=== PATIENT | female | born 1945 | race Caucasian/White ===

== ENCOUNTER 2021-08-16 16:12 | Inpatient (IN) | payer MEDICARE, SELFPAY ==
[2021-08-16 17:12] VITALS: BMI 43.5
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
[2021-08-16 18:27] VITALS: BP 125/63; PULSE 88; RESP 17; TEMP 36.7; O2SAT 98
[2021-08-16 19:03] LABS: TSH reflex Free T4 2.45 uIU/mL (0.32-4.0)
[2021-08-16 20:22] VITALS: BP 125/65; PULSE 85; RESP 17; TEMP 36.4; O2SAT 98
[2021-08-16] MEDS: Pentoxifylline ER 400 MG TABLET.ER PO (20:38)
[2021-08-16] MEDS: Gabapentin 300 MG CAPSULE PO (20:38)
[2021-08-16 20:42] VITALS: BP 125/65; PULSE 85; TEMP 36.4
[2021-08-17 11:05] VITALS: BP 118/59; PULSE 93; RESP 14; TEMP 36.3; O2SAT 100
--- NOTE | 2021-08-17 11:19 | MHC.CLN ---
NUTRITION VISITED WITH PATIENT TO DISCUSS FOOD ALLERGIES. DOES NOT APPEAR TO BE AN ACCURATE HISTORIAN AND COULD NOT FOCUS ON TOPIC. FOOD ALLERGIES ON RECORD: ALMOND, EGG, GLUTEN, LACTOSE, PORK, SOYBEAN, WHEAT. STATED THAT HER FOOD ALLERGIES ARE NOT CARVED IN STONE . DIET CHOICES LIKELY LIMITED BY HX HOMELESSNESS. DRINKS LACTAID, SOYMILK, WILL EAT WHOLE WHEAT BREAD SOMETIMES, WILL EAT EGG YOLK BUT NOT EGG WHITE, WILL EAT EGGS IN BAKED GOODS. REFERRED TO FOOD PROCESSNG AND THE WAY IT IS GROWN CAUSALS OF SOME FOOD ALLERGIES. PROVIDE PATIENT WITH DIET THAT IS FREE OF REPORTED ALLERGEN CAUSING FOODS.
[2021-08-17 13:51] VITALS: BP 122/61; PULSE 92
[2021-08-17] MEDS: Pentoxifylline ER 400 MG TABLET.ER PO ×2 (13:51→20:47)
[2021-08-17] MEDS: Metoprolol Succinate ER 25 MG TAB.ER.24H PO (13:51)
[2021-08-17] MEDS: Gabapentin 300 MG CAPSULE PO ×4 (13:53→20:49)
[2021-08-17] MEDS: Omeprazole 20 MG CAPSULE.DR PO (13:53)
--- NOTE | 2021-08-17 14:49 | P.PNPSI_ITS ---
Subjective Subjective Date of Service: 08/17/21 Reason For Visit: psychosis Subjective Notes: 3 Day Interim History: The nursing staff reported the patient has been hyperverbal at 23:00 in the morning. The social service agency director known her for previous admissions at [facility] and seems that she is chronically homeless hypomanic. Total interview, the patient was pleasant but tangential at times, fully aware that she signed a 3 day notice. Mental Status Exam Mental Status Exam Patient Appearance: Unkempt Patient Orientation: Person, Place and Situation Level of Consciousness: Awake and Appropriate Patient Behavior: Cooperative Mood Description: Elated Affect Description: Labile and Expansive Patient Cognition Impaired: Yes Ability to Follow Directions: Good Speech Pattern: Rapid Memory Description: Intact Hallucinations: None Delusions: Not Present Thought Process: Distracted (Flight of ideas) Thought Content: positive for Obsessional Thoughts and positive for Disorganized Judgement: Fair Diagnostics Vital Signs (24Hr): Vital Signs - 24 hr 08/16/21 18:27 08/16/21 20:22 08/16/21 20:42 Temperature 98.1 F 97.6 F 97.6 F Pulse Rate 88 85 85 Respiratory Rate 17 17 Blood Pressure 125/63 125/65 125/65 Pulse Oximetry 98 98 08/17/21 11:05 08/17/21 13:51 Temperature 97.3 F Pulse Rate 93 92 Respiratory Rate 14 Blood Pressure 118/59 L 122/61 Pulse Oximetry 100 Body Mass Index 43.5 Labs Labs: Laboratory Results - last 48 hr 08/16/21 18:22 TSH 2.45 Medications Medications Current Medications Acetaminophen (Acetaminophen 325 Mg Tablet) 650 mg PO Q6H PRN PRN Reason: Headache/Pain Mild Scale (1-3) Al Hydroxide/Mg Hydroxide (Magnesium Hydrox/Alum Hydrox 30 Ml Oral.Susp) 30 ml PO Q6H PRN PRN Reason: Heartburn/Nausea Atorvastatin Calcium (Atorvastatin Calcium 20 Mg Tablet) 20 mg PO BEDTIME [facility] Gabapentin (Gabapentin 300 Mg Capsule) 300 mg PO QID [facility] Last Admin: 08/17/21 13:54 Dose: 300 mg Documented by: Hydroxyzine HCl (Hydroxyzine Hcl 25 Mg Tablet) 25 mg PO Q6H PRN PRN Reason: Anxiety Magnesium Hydroxide (Milk Of Magnesia 30 Ml Oral.Susp) 30 ml PO DAILY PRN PRN Reason: Constipation Metoprolol Succinate (Metoprolol Succinate Er 25 Mg Tab.Er.24h) 25 mg PO DAILY [facility]; Protocol Last Admin: 08/17/21 13:51 Dose: 25 mg Documented by: Omeprazole (Omeprazole 20 Mg Capsule.) 20 mg PO DAILY@0630 [facility] Last Admin: 08/17/21 13:53 Dose: 20 mg Documented by: Pentoxifylline (Pentoxifylline Er 400 Mg Tablet.Er) 400 mg PO TID [facility] Last Admin: 08/17/21 13:51 Dose: 400 mg Documented by: Trazodone HCl (Trazodone Hcl 50 Mg Tablet) 50 mg PO BEDTIME PRN PRN Reason: Insomnia Allergies Allergies Allergy/AdvReac Type Severity Reaction Status Date / Time albumin colloid, human Allergy Unknown Verified 08/16/21 20:41 almond Allergy Unknown Verified 08/16/21 20:41 egg Allergy Unknown Verified 08/16/21 20:41 gluten Allergy Unknown Verified 08/16/21 20:41 influenza virus vaccine Allergy Unknown Verified 08/16/21 20:41 trivalent lactose Allergy Unknown Verified 08/16/21 20:41 Pork/Porcine Containing Allergy Unknown Verified 08/16/21 20:41 Products soybean Allergy Unknown Verified 08/16/21 20:41 wheat Allergy Unknown Verified 08/16/21 20:41 Assessment & Plan Assessment & Plan (1) Bipolar I disorder with nirav: Status: Acute Code(s): F31.10 - Bipolar disorder, current episode manic without psychotic features, unspecified Assessment and Plan: Charisma is a 75 y.o. Female who carries a dx of bipolar disorder I disorder. She presented to [facility] ED on 08/14/2021 and was seen by [facility] crisis due to delusional presentation. She is current presenting with sx of pressured speech and disorganized thought content in context of med non-adherence. Pt denies having mental health diagnosis and declines psychotropic medication adjustment despite reported past benefit on risperdal and depakote. She does not appear to be an accurate historian. Plan: Increase gabapentin to 300 mg QID to target mood lability and manic features Continue to offer mood stabilizing medication for bipolar disorder Monitor response to medications. Monitor for safety in the milieu. Discharge on stabilization. Patient seen. Chart reviewed. Discussed with team. Obtain collateral contact info?as needed Greater than 50% of the session was spent on counseling and/or coordination of care Reason for contiued inpatient stay Substantial Risk for: inability to function, rapid decompensation and med/psych decompensation
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
[2021-08-17 18:00] VITALS: BP 126/76; PULSE 68; RESP 18; TEMP 36.8; O2SAT 100
[2021-08-17] MEDS: Atorvastatin Calcium 20 MG TABLET PO (20:48)
[2021-08-18 06:00] VITALS: BP 138/63; PULSE 84; RESP 18; TEMP 36.1; O2SAT 97
[2021-08-18] MEDS: Omeprazole 20 MG CAPSULE.DR PO (07:04)
[2021-08-18 09:02] VITALS: BP 138/63; PULSE 84
[2021-08-18] MEDS: Metoprolol Succinate ER 25 MG TAB.ER.24H PO (09:02)
[2021-08-18] MEDS: Pentoxifylline ER 400 MG TABLET.ER PO ×3 (09:02→20:23)
[2021-08-18] MEDS: Gabapentin 300 MG CAPSULE PO ×4 (09:05→20:23)
[2021-08-18 18:00] VITALS: BP 129/63; PULSE 86; RESP 16; TEMP 36.2; O2SAT 98
--- NOTE | 2021-08-18 18:15 | HO.PSYCHPN ---
Subjective Subjective Date of Service: 08/18/21 Reason For Visit: psychosis Interim History: Patient seen and discussed with team. Patient evaluated this morning and upon interview Im j luis, I wanna get home. Says her not doing well at all and they won?t fly us out until i?m home and with him. Insists that he needs surgery for mesothelioma and they are awaiting for him to be approved for surgery but that this surgery will need to occur in a specialized hospital and so they will likely be flown out of state- however pt is not a reliable historian. She has signed a 3 day notice on 08/17/21. Says her sleep is good, I sleep like a log. She continues to insist that staff give her direct eye contact due to her hearing impairment. She is hyperverbal and tangential, difficult to re-direct. Does not want med changes. In the milieu, patient is safe but intrusive in behavior. Denies SI/SIB/HI upon inquiry. Denies irritability or assaultive ideation. Says she feels safe. Medication Compliance: Yes Side effects from medications: No Attending Groups: Yes Review of Systems Acute medical concerns: No Medical Review of Systems: unchanged Mental Status Exam Mental Status Exam Narrative: Patient Appearance:?Unkempt Patient Orientation:?Person, Place and Situation Level of Consciousness:?Awake and Appropriate Patient Behavior:?Cooperative Mood Description:?Elated Affect Description:?Labile and Expansive Patient Cognition Impaired:?Yes Ability to Follow Directions:?Good Speech Pattern:?Rapid Memory Description:?Intact Hallucinations:?None Delusions:?Not Present Thought Process:?Distracted (Flight of ideas) Thought Content:?positive for Obsessional Thoughts and positive for Disorganized Judgement:?Fair Diagnostics Vital Signs (24Hr): Vital Signs - 24 hr 08/18/21 06:00 08/18/21 09:02 Temperature 97.0 F Pulse Rate 84 84 Respiratory Rate 18 Blood Pressure 138/63 138/63 Pulse Oximetry 97 Body Mass Index 43.5 Labs Labs: Laboratory Results - last 48 hr 08/16/21 18:22 TSH 2.45 Medications Medications Current Medications Acetaminophen (Acetaminophen 325 Mg Tablet) 650 mg PO Q6H PRN PRN Reason: Headache/Pain Mild Scale (1-3) Al Hydroxide/Mg Hydroxide (Magnesium Hydrox/Alum Hydrox 30 Ml Oral.Susp) 30 ml PO Q6H PRN PRN Reason: Heartburn/Nausea Atorvastatin Calcium (Atorvastatin Calcium 20 Mg Tablet) 20 mg PO BEDTIME [facility] Last Admin: 08/17/21 20:48 Dose: 20 mg Documented by: Gabapentin (Gabapentin 300 Mg Capsule) 300 mg PO QID [facility] Last Admin: 08/18/21 17:26 Dose: 300 mg Documented by: Hydroxyzine HCl (Hydroxyzine Hcl 25 Mg Tablet) 25 mg PO Q6H PRN PRN Reason: Anxiety Magnesium Hydroxide (Milk Of Magnesia 30 Ml Oral.Susp) 30 ml PO DAILY PRN PRN Reason: Constipation Metoprolol Succinate (Metoprolol Succinate Er 25 Mg Tab.Er.24h) 25 mg PO DAILY [facility]; Protocol Last Admin: 08/18/21 09:02 Dose: 25 mg Documented by: Omeprazole (Omeprazole 20 Mg Capsule.Dr) 20 mg PO DAILY@0630 [facility] Last Admin: 08/18/21 07:04 Dose: 20 mg Documented by: Pentoxifylline (Pentoxifylline Er 400 Mg Tablet.Er) 400 mg PO TID [facility] Last Admin: 08/18/21 15:10 Dose: 400 mg Documented by: Trazodone HCl (Trazodone Hcl 50 Mg Tablet) 50 mg PO BEDTIME PRN PRN Reason: Insomnia Allergies Allergies Allergy/AdvReac Type Severity Reaction Status Date / Time albumin colloid, human Allergy Unknown Verified 08/16/21 20:41 almond Allergy Unknown Verified 08/16/21 20:41 egg Allergy Unknown Verified 08/16/21 20:41 gluten Allergy Unknown Verified 08/16/21 20:41 influenza virus vaccine Allergy Unknown Verified 08/16/21 20:41 trivalent lactose Allergy Unknown Verified 08/16/21 20:41 Pork/Porcine Containing Allergy Unknown Verified 08/16/21 20:41 Products soybean Allergy Unknown Verified 08/16/21 20:41 wheat Allergy Unknown Verified 08/16/21 20:41 Assessment & Plan Assessment & Plan (1) Bipolar I disorder with nirav: Status: Acute Code(s): F31.10 - Bipolar disorder, current episode manic without psychotic features, unspecified Assessment and Plan: Charisma is a 75 y.o. Female who carries a dx of bipolar disorder I disorder. She presented to [facility] ED on 08/14/2021 and was seen by [facility] due to delusional presentation. She is current presenting with sx of pressured speech and disorganized thought content in context of med non-adherence. Pt denies having mental health diagnosis and declines psychotropic medication adjustment despite reported past benefit on risperdal and depakote. She does not appear to be an accurate historian. Weekend coverage: pt does not want med changes, reports she is feeling stable and has limited insight into her psych sx. Plan: Continue gabapentin to 300 mg QID to target mood lability and manic features Continue to offer mood stabilizing medication for bipolar disorder Monitor response to medications. Monitor for safety in the milieu. Discharge on stabilization. Patient seen. Chart reviewed. Discussed with team. Obtain collateral contact info?as needed Greater than 50% of the session was spent on counseling and/or coordination of care Reason for contiued inpatient stay Substantial Risk for: med/psych decompensation
[2021-08-18] MEDS: Atorvastatin Calcium 20 MG TABLET PO (20:23)
[2021-08-18] MEDS: Acetaminophen 325 MG TABLET 650 MG PO (23:49)
[2021-08-19 06:00] VITALS: BP 113/60; PULSE 77; RESP 18; TEMP 37.1; O2SAT 99
[2021-08-19] MEDS: Omeprazole 20 MG CAPSULE.DR PO (06:14)
[2021-08-19] MEDS: Pentoxifylline ER 400 MG TABLET.ER PO ×3 (09:39→20:58)
[2021-08-19] MEDS: Gabapentin 300 MG CAPSULE PO ×4 (09:39→20:58)
[2021-08-19 09:40] VITALS: BP 113/60; PULSE 77
[2021-08-19] MEDS: Metoprolol Succinate ER 25 MG TAB.ER.24H PO (09:40)
[2021-08-19 18:00] VITALS: BP 136/70; PULSE 77; RESP 20; TEMP 36; O2SAT 98
[2021-08-19] MEDS: Atorvastatin Calcium 20 MG TABLET PO (20:58)
[2021-08-20] MEDS: Omeprazole 20 MG CAPSULE.DR PO (05:07)
--- NOTE | 2021-08-20 07:16 | HO.PSYCHPN ---
Subjective Subjective Date of Service: 08/19/21 Reason For Visit: psychosis Interim History: Patient seen and discussed with team. Patient evaluated this morning and upon interview pt reports she feels pretty good. Continues to perseverate on needing surgery out of state and says We?re out of here as soon as we get my ?s surgery. She continues to present with grandiose delusions and is an inaccurate historian. 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 Does not want med changes, says they are helping and appreciates the increase in gabapentin to target anxiety and mood stability, I think we got them right. In the milieu, patient is safe but intrusive in behavior. Denies SI/SIB/HI upon inquiry. Denies irritability or assaultive ideation. Says she feels safe. Medication Compliance: Yes Side effects from medications: No Attending Groups: Yes Review of Systems Acute medical concerns: No Medical Review of Systems: unchanged Mental Status Exam Mental Status Exam Narrative: Narrative:?Patient Appearance:?Unkempt Patient Orientation:?Person, Place and Situation Level of Consciousness:?Awake and Appropriate Patient Behavior:?Cooperative Mood Description:?Elated Affect Description:?Labile and Expansive Patient Cognition Impaired:?Yes Ability to Follow Directions:?Good Speech Pattern:?Rapid Memory Description:?Intact Hallucinations:?None Delusions:?Not Present Thought Process:?Distracted (Flight of ideas) Thought Content:?positive for Obsessional Thoughts and positive for Disorganized Judgement:?Fair Diagnostics Vital Signs (24Hr): Vital Signs - 24 hr 08/19/21 09:40 08/19/21 18:00 Temperature 96.8 F Pulse Rate 77 77 Respiratory Rate 20 Blood Pressure 113/60 136/70 Pulse Oximetry 98 Body Mass Index 43.5 Medications Medications Current Medications Acetaminophen (Acetaminophen 325 Mg Tablet) 650 mg PO Q6H PRN PRN Reason: Headache/Pain Mild Scale (1-3) Last Admin: 08/18/21 23:49 Dose: 650 mg Documented by: Al Hydroxide/Mg Hydroxide (Magnesium Hydrox/Alum Hydrox 30 Ml Oral.Susp) 30 ml PO Q6H PRN PRN Reason: Heartburn/Nausea Atorvastatin Calcium (Atorvastatin Calcium 20 Mg Tablet) 20 mg PO BEDTIME [facility] Last Admin: 08/19/21 20:58 Dose: 20 mg Documented by: Diphenhydramine HCl (Diphenhydramine Hcl 25 Mg Tablet) 25 mg PO BEDTIME PRN PRN Reason: Sleep Gabapentin (Gabapentin 300 Mg Capsule) 300 mg PO QID [facility] Last Admin: 08/19/21 20:58 Dose: 300 mg Documented by: Hydroxyzine HCl (Hydroxyzine Hcl 25 Mg Tablet) 25 mg PO Q6H PRN PRN Reason: Anxiety Magnesium Hydroxide (Milk Of Magnesia 30 Ml Oral.Susp) 30 ml PO DAILY PRN PRN Reason: Constipation Metoprolol Succinate (Metoprolol Succinate Er 25 Mg Tab.Er.24h) 25 mg PO DAILY [facility]; Protocol Last Admin: 08/19/21 09:40 Dose: 25 mg Documented by: Omeprazole (Omeprazole 20 Mg Capsule.Dr) 20 mg PO DAILY@0630 [facility] Last Admin: 08/20/21 05:07 Dose: 20 mg Documented by: Pentoxifylline (Pentoxifylline Er 400 Mg Tablet.Er) 400 mg PO TID [facility] Last Admin: 08/19/21 20:58 Dose: 400 mg Documented by: Trazodone HCl (Trazodone Hcl 50 Mg Tablet) 50 mg PO BEDTIME PRN PRN Reason: Insomnia Allergies Allergies Allergy/AdvReac Type Severity Reaction Status Date / Time albumin colloid, human Allergy Unknown Verified 08/16/21 20:41 almond Allergy Unknown Verified 08/16/21 20:41 egg Allergy Unknown Verified 08/16/21 20:41 gluten Allergy Unknown Verified 08/16/21 20:41 influenza virus vaccine Allergy Unknown Verified 08/16/21 20:41 trivalent lactose Allergy Unknown Verified 08/16/21 20:41 Pork/Porcine Containing Allergy Unknown Verified 08/16/21 20:41 Products soybean Allergy Unknown Verified 08/16/21 20:41 wheat Allergy Unknown Verified 08/16/21 20:41 Assessment & Plan Assessment & Plan (1) Bipolar I disorder with nirav: Status: Acute Code(s): F31.10 - Bipolar disorder, current episode manic without psychotic features, unspecified Assessment and Plan: Charisma is a 75 y.o. Female who carries a dx of bipolar disorder I disorder. She presented to [facility] ED on 08/14/2021 and was seen by [facility] due to delusional presentation. She is current presenting with sx of pressured speech and disorganized thought content in context of med non-adherence. Pt denies having mental health diagnosis and declines psychotropic medication adjustment despite reported past benefit on risperdal and depakote. She does not appear to be an accurate historian. Weekend coverage: pt does not want med changes, reports she is feeling stable and has limited insight into her psych sx. 3 day notice signed on 08/17/21. Plan: Continue gabapentin to 300 mg QID to target mood lability and manic features Continue to offer mood stabilizing medication for bipolar disorder Monitor response to medications. Monitor for safety in the milieu. Discharge on stabilization. Patient seen. Chart reviewed. Discussed with team. Obtain collateral contact info?as needed Greater than 50% of the session was spent on counseling and/or coordination of care Reason for contiued inpatient stay Substantial Risk for: med/psych decompensation
[2021-08-20] MEDS: Gabapentin 300 MG CAPSULE PO ×4 (08:28→20:49)
[2021-08-20] MEDS: Metoprolol Succinate ER 25 MG TAB.ER.24H PO (08:28)
[2021-08-20] MEDS: Pentoxifylline ER 400 MG TABLET.ER PO ×3 (08:28→20:49)
[2021-08-20 09:29] VITALS: BP 132/69; PULSE 90; RESP 14; TEMP 36.7; O2SAT 95
--- NOTE | 2021-08-20 13:15 | P.PNPSI_ITS ---
Subjective Subjective Date of Service: 08/20/21 Reason For Visit: psychosis Interim History: The nursing staff has reported that the patient has being with fast speech but med compliant, she is described as eccentric and hypomanic but safe. The nursing home social worker who knows her from previous admissions reported that this is her baseline and she usually school chronically homeless living in a motel in [facility]. According to the report of the intake apparently she was evicted from there. She usually refuses services and today, she again refused referral to other providers in the community. On interview, the patient stated that she wants to leave, she feels safe and she denies having any psychiatric condition. She is able to take care of herself safely. Medication Compliance: Yes Side effects from medications: No Attending Groups: Yes Review of Systems Acute medical concerns: No Medical Review of Systems: unchanged Mental Status Exam Mental Status Exam Patient Appearance: Well Grooomed Patient Orientation: Person, Place and Situation Level of Consciousness: Awake Patient Behavior: Appropriate and Hyperactive Mood Description: Appropriate and Anxious Affect Description: Appropriate Patient Cognition Impaired: No Ability to Follow Directions: Good Speech Pattern: Rapid Memory Description: Intact Hallucinations: None Delusions: Not Present Thought Process: Distracted Thought Content: positive for Circumstantial Judgement: Fair Diagnostics Vital Signs (24Hr): Vital Signs - 24 hr 08/19/21 18:00 08/20/21 09:29 Temperature 96.8 F 98.0 F Pulse Rate 77 90 Respiratory Rate 20 14 Blood Pressure 136/70 132/69 Pulse Oximetry 98 95 Body Mass Index 43.5 Medications Medications Current Medications Acetaminophen (Acetaminophen 325 Mg Tablet) 650 mg PO Q6H PRN PRN Reason: Headache/Pain Mild Scale (1-3) Last Admin: 08/18/21 23:49 Dose: 650 mg Documented by: Al Hydroxide/Mg Hydroxide (Magnesium Hydrox/Alum Hydrox 30 Ml Oral.Susp) 30 ml PO Q6H PRN PRN Reason: Heartburn/Nausea Atorvastatin Calcium (Atorvastatin Calcium 20 Mg Tablet) 20 mg PO BEDTIME [facility] Last Admin: 08/19/21 20:58 Dose: 20 mg Documented by: Diphenhydramine HCl (Diphenhydramine Hcl 25 Mg Tablet) 25 mg PO BEDTIME PRN PRN Reason: Sleep Gabapentin (Gabapentin 300 Mg Capsule) 300 mg PO QID [facility] Last Admin: 08/20/21 12:39 Dose: 300 mg Documented by: Hydroxyzine HCl (Hydroxyzine Hcl 25 Mg Tablet) 25 mg PO Q6H PRN PRN Reason: Anxiety Magnesium Hydroxide (Milk Of Magnesia 30 Ml Oral.Susp) 30 ml PO DAILY PRN PRN Reason: Constipation Metoprolol Succinate (Metoprolol Succinate Er 25 Mg Tab.Er.24h) 25 mg PO DAILY [facility]; Protocol Last Admin: 08/20/21 08:28 Dose: 25 mg Documented by: Omeprazole (Omeprazole 20 Mg Capsule.Dr) 20 mg PO DAILY@0630 [facility] Last Admin: 08/20/21 05:07 Dose: 20 mg Documented by: Pentoxifylline (Pentoxifylline Er 400 Mg Tablet.Er) 400 mg PO TID [facility] Last Admin: 08/20/21 08:28 Dose: 400 mg Documented by: Trazodone HCl (Trazodone Hcl 50 Mg Tablet) 50 mg PO BEDTIME PRN PRN Reason: Insomnia Allergies Allergies Allergy/AdvReac Type Severity Reaction Status Date / Time albumin colloid, human Allergy Unknown Verified 08/16/21 20:41 almond Allergy Unknown Verified 08/16/21 20:41 egg Allergy Unknown Verified 08/16/21 20:41 gluten Allergy Unknown Verified 08/16/21 20:41 influenza virus vaccine Allergy Unknown Verified 08/16/21 20:41 trivalent lactose Allergy Unknown Verified 08/16/21 20:41 Pork/Porcine Containing Allergy Unknown Verified 08/16/21 20:41 Products soybean Allergy Unknown Verified 08/16/21 20:41 wheat Allergy Unknown Verified 08/16/21 20:41 Assessment & Plan Assessment & Plan (1) Bipolar I disorder with nirav: Status: Acute Code(s): F31.10 - Bipolar disorder, current episode manic without psychotic features, unspecified Assessment and Plan: Charisma is a 75 y.o. Female who carries a dx of bipolar disorder I disorder. She presented to [facility] ED on 08/14/2021 and was seen by [facility] crisis due to delusional presentation. She is current presenting with sx of pressured speech and disorganized thought content in context of med non-adherence. Pt denies having mental health diagnosis and declines psychotropic medication adjustment despite reported past benefit on risperdal and depakote. She does not appear to be an accurate historian. Weekend coverage: pt does not want med changes, reports she is feeling stable and has limited insight into her psych sx. 3 day notice signed on 08/17/21. Today, she is cooperative with the treatment, still hypomanic at baseline but safe in the community. Plan: Continue same treatment Greater than 50% of the session was spent on counseling and/or coordination of care Reason for contiued inpatient stay Substantial Risk for: rapid decompensation and med/psych decompensation
[2021-08-20 18:00] VITALS: BP 138/65; PULSE 73; RESP 18; TEMP 37.2; O2SAT 98
[2021-08-20] MEDS: Atorvastatin Calcium 20 MG TABLET PO (20:49)
[2021-08-21] MEDS: Omeprazole 20 MG CAPSULE.DR PO (05:57)
[2021-08-21 08:38] VITALS: BP 117/56; PULSE 86
[2021-08-21] MEDS: Gabapentin 300 MG CAPSULE PO ×2 (08:38→12:36)
[2021-08-21] MEDS: Metoprolol Succinate ER 25 MG TAB.ER.24H PO (08:38)
[2021-08-21] MEDS: Pentoxifylline ER 400 MG TABLET.ER PO ×2 (08:38→14:17)
[2021-08-21 09:07] VITALS: BP 119/56; PULSE 87; TEMP 35.7; O2SAT 97
--- NOTE | 2021-08-21 11:24 | PM.PSYDC ---
DS: Providers Provider Date of Service: 08/21/21 Date of admission: 08/16/21 16:12 Date of discharge: 08/21/21 Primary care physician: Iris Hodge MD Consults: 08/16/21 17:06 Consult to Hospitalist Routine Consulting Provider: Hospitalist Reason For Exam: new admit from [facility] Attending physician on discharge: Jesus Rossi DS: Diagnosis Discharge Diagnosis (1) Bipolar I disorder with nirav: Status: Acute Mental Status Exam Mental Status Exam Patient Appearance: Well Grooomed Patient Orientation: Person, Place and Situation Level of Consciousness: Awake and Appropriate Patient Behavior: Cooperative Mood Description: Happy and Appropriate Affect Description: Labile (At times) and Expansive Patient Cognition Impaired: No Ability to Follow Directions: Good Speech Pattern: Clear Memory Description: Intact Hallucinations: None Delusions: Not Present Thought Process: Linear Thought Content: positive for Flight of Ideas Judgement: Fair Data Data Completed and Pending Completed studies during hospitalization [Text1]: 08/16/21 18:22 TSH 2.45 DS: Summary Hospital Course Time spent discussing smoking cessation with patient: 3 to 10 minutes Status at Discharge Cognitive/behavioral status at discharge: At baseline Functional status at discharge: independent ambulation Overall status at discharge: patient is back to baseline Time Spent with Patient Time attestation: Total time spent providing and/or coordinating discharge services: Time spent: Less than 30 minutes Discharge Plan Discharge Patient Disposition: Home, Self-Care Discharge Diagnosis: Bipolar disorder type 1 Referrals: Angeline DAMON [Other] - 1 Week (Angeline DAMON will resume for RN services on Friday08/22/21. ) Iris Hodge MD [Primary Care Provider] - 1 Week Discharge Medications: New atorvastatin 20 mg Tablet 20 mg PO BEDTIME 30 Days Qty: 30 RF: 0 pentoxifylline 400 mg Tablet Extended Release 400 mg PO TID 30 Days Qty: 90 RF: 0 diphenhydramine HCl [Allergy Relief(diphenhydramin)] 25 mg Tablet 25 mg PO BEDTIME PRN (Reason: Sleep) 30 Days Qty: 30 RF: 0 gabapentin 300 mg Capsule 300 mg PO QID 30 Days Qty: 120 RF: 0 omeprazole 20 mg Capsule,Delayed Release(Dr/Ec) 20 mg PO DAILY@0630 30 Days Qty: 30 RF: 0 metoprolol succinate 25 mg Tablet Extended Release 24 Hr 25 mg PO DAILY 30 Days Qty: 30 RF: 0 Discharge Orders: Discharge Order (Routine); Ordered 08/21/21 Ordered By: Jesus Rossi Diet: advance to usual diet Activity on Discharge: As tolerated Stand Alone Forms: Patient Portal Discharge page Care Plan Goals: Care plan goals achieved in the unit Health Concerns: Continue medical treatment by his primary care physician Plan of Treatment: The patient refused psychotherapy or psychiatric referrals Assessment: Elderly female with a long history of mood disorders, fairly stable and safe in the community admitted for disorganized behavior. She was restarted on gabapentin 300 mg 4 times a day with for improvement at this moment, there is no safety concerns for discharge
== END 2021-08-21 15:00 | disposition home or self-care (01) | DRG 885 ==
PROVIDERS: Registered Nurse; Admitting Provider Psychiatry & Neurology Psychiatry; PCP Internal Medicine; Visit Provider Psychiatry & Neurology Psychiatry
DX: F31.10 Bipolar disorder, current episode manic without psychotic features, unspecified (principal); I25.10 Atherosclerotic heart disease of native coronary artery without angina pectoris; K21.9 Gastro-esophageal reflux disease without esophagitis; Z79.899 Other long term (current) drug therapy
CPT/HCPCS: 36415; 84443

== ENCOUNTER 2024-01-28 17:26 | Inpatient (IN) | payer MEDICARE, SELFPAY ==
[2024-01-28 17:52] VITALS: PULSE 71; O2SAT 99
--- NOTE | 2024-01-28 17:54 | ED_ITS ---
HPI - General Adult General Chief complaint: Psychiatric Symptoms Stated complaint: MISSING MEDS, MANIC, INCOHERENT Time Seen by Provider: 01/28/24 17:54 History of Present Illness HPI narrative: The patient is a 78-year-old woman with a history of bipolar 1 disorder with nirav who was brought to the hospital by ambulance from a local hotel or motel. Apparently she has been living there with her . Her is sick with mesothelioma and seemed quite ill today. An ambulance was called and he was taken to [facility]. For reasons that are not entirely clear the patient was brought to this hospital. The patient tells me that she was concerned that she was having trouble with her medications. She claims that her throughout her medications. The patient further says that she was recently hospitalized at [facility]. She says that she had a stroke and then had a heart attack. She does not have any chest pain or shortness of breath at the moment. The patient is quite hyperverbal and disorganized and does not really able to give useful history. Related Data Previous Rx's Medication Instructions Recorded atorvastatin 20 mg tablet 20 mg PO BEDTIME 30 days #30 tabs 08/21/21 diphenhydramine HCl 25 mg tablet 25 mg PO BEDTIME PRN Sleep 30 days 08/21/21 (Allergy Relief (diphenhydramine)) #30 tabs gabapentin 300 mg capsule 300 mg PO QID 30 days #120 caps 08/21/21 metoprolol succinate 25 mg 25 mg PO DAILY 30 days #30 tabs 08/21/21 tablet,extended release 24 hr omeprazole 20 mg capsule,delayed 20 mg PO DAILY@0630 30 days #30 08/21/21 release caps pentoxifylline 400 mg 400 mg PO TID 30 days #90 tabs 08/21/21 tablet,extended release Allergies Allergy/AdvReac Type Severity Reaction Status Date / Time albumin colloid, human Allergy Unknown Verified 01/28/24 18:12 almond Allergy Unknown Verified 01/28/24 18:12 egg Allergy Unknown Verified 01/28/24 18:12 gluten Allergy Unknown Verified 01/28/24 18:12 influenza virus vaccine Allergy Unknown Verified 01/28/24 18:12 trivalent lactose Allergy Unknown Verified 01/28/24 18:12 Pork/Porcine Containing Allergy Unknown Verified 01/28/24 18:12 Products soybean Allergy Unknown Verified 01/28/24 18:12 wheat Allergy Unknown Verified 01/28/24 18:12 Review of Systems 2 Review of Systems: Yes all other systems are reviewed and are negative [facility] Social History Social History Household Members: Significant Other Housing: Homeless Do you presently have visiting nurse or other home services: No Unable to assess alcohol history related to: Unknown Patient Tobacco Use Status: Never used Tobacco Smoked in Last 30 Days: No Use of substances other than those prescribed or required for medical reasons: Unable to respond Advance Directives: No Advance Directives Information Provided: No service: No Sexual orientation: Straight/Heterosexual Physical Exam ED Vital Signs: Vital Signs - 24 hr 01/28/24 18:07 01/28/24 22:52 01/29/24 00:00 Temperature 97.7 F 97.3 F 99.3 F Pulse Rate 75 77 75 Respiratory Rate 16 19 18 Blood Pressure 121/65 108/58 L 134/60 Pulse Oximetry 100 98 98 Oxygen Delivery Method Room Air Room Air Room Air BMI result Body Mass Index 38.7 Const Other: The patient is a poorly kempt 78-year-old woman who was awake and alert and hyperverbal. She does not seem in acute distress. She is difficult to communicate with because her speech is so pressured and tangential. HENMT Other: No obvious facial asymmetry. Mucous membranes do not appear obviously dry. Eyes Other: Pupils are small, round, equal, extraocular movements are intact Neck Other: No JVD, moving her neck easily Resp Effort & Inspection: normal respiratory effort Auscultation: clear to auscultation bilaterally Cardio Rate: regular rate Rhythm: regular rhythm Heart sounds: S1 normal heart sound present and S2 normal heart sound present GI Other: Abdomen is soft and nontender Skin Other: Skin is pale and dry Neuro Other: The patient is awake and alert. She reports being very hard of hearing but often seemed to hear a lot that was quite quiet. Cranial nerves are otherwise intact. She moves her extremities symmetrically. She was able to stand and had adequate strength in her legs for standing but she reported that she was very unsteady on her feet and said that she needed a wheelchair to go to the bathroom. Overall I felt she seemed generally deconditioned and without focal deficit. Extrem Other: No pitting edema. Psych Other: The patient is a poorly kempt 78-year-old woman with pressured and tangential speech. Medical Decision Making Medical Decision Making [facility] Narrative: The patient is a 78-year-old woman with a history of chronic mental illness. She has been diagnosed with bipolar 1 disorder in the past. She has been off medications recently. She was at [facility] in early December for 4 days. I believe she was held in observation in the emergency room. I suspect that her presentation at that time was probably fairly similar to her presentation today. Her presentation today includes pressured speech, tangential thoughts, and no insight. She has an unreliable historian. It is unclear whether she has been taking any medications. She was prescribed olanzapine when she left [facility] but it is not clear if this is a medication she has been using. She has been prescribed Depakote in the past but her Depakote level is not detectable. The patient's medical workup is unremarkable. I think she is medically clear and stable for a psychiatric evaluation. It is possible that her current behavior is a reflection of her chronic condition. I believe she will need evaluation by the care team. It also seems as though her living situation is very tenuous and so I think case management will need to be involved in unless she is admitted psychiatrically. The patient will be paced in physician observation. She is medically clear. Lab Data 01/28/24 19:21 01/28/24 19:21 Labs: Lab Results 01/28/24 01/28/24 01/28/24 Range/Units 19:21 20:57 23:22 WBC 6.3 (4.8-10.8) X10*3/uL RBC 4.36 (4.20-5.50) X10*6/uL Hgb 13.3 (12.0-16.0) g/dl Hct 39.6 (37.0-47.0) % MCV 90.8 (80.0-98.0) fL MCH 30.5 (27.0-33.0) pg MCHC 33.6 (31.0-35.0) g/dl RDW 13.2 (11.0-16.0) % Plt Count 187 (160-400) X10*3/uL MPV 11.1 (9.4-12.3) fL Immature Gran % (Auto) 0.2 (0.0-0.4) % Neut % (Auto) 61.3 (45-73) % Lymph % (Auto) 28.3 (20-40) % Daniels % (Auto) 8.7 (2-11) % Eos % (Auto) 1.0 (0-4) % Baso % (Auto) 0.5 (0-2) % Lymph # (Auto) 1.8 (1.2-4.9) X10*3/uL Daniels # (Auto) 0.6 (0.1-1.2) X10*3/uL Eos # (Auto) 0.1 (0.0-0.4) X10*3/uL Baso # (Auto) 0.0 (0.0-0.2) X10*3/uL Abs Immat Gran (auto) 0.01 (0.00-0.03) X10*3/uL Absolute Neuts (auto) 3.9 (2.0-8.3) x10*3/uL Absolute Nucleated RBC 0.000 (0.0-0.012) X10*3/uL Nucleated RBC % (auto) 0.0 (0.0-0.2) /100WBC Sodium 139 (135-145) mmol/L Potassium 3.9 (3.3-5.1) mmol/L Chloride 105 (96-108) mmol/L Carbon Dioxide 25 (22-29) mmol/L Anion Gap 13 (12-20) BUN 21 H (9-16) mg/dL Creatinine 1.00 (0.5-1.4) mg/dL Estim Creat Clear Calc 58.8 Estimated GFR 54 Random Glucose 228 H (60-115) mg/dL Calcium 9.7 (8.4-10.2) mg/dL Total Bilirubin 0.6 (0.0-1.0) mg/dL Direct Bilirubin 0.2 (0.0-0.5) mg/dL AST 20 (5-31) U/L ALT 15 (0-31) U/L Alkaline Phosphatase 91 (39-117) U/L Total Protein 7.1 (6.5-8.0) g/dL Albumin 3.8 (3.5-5.0) g/dL TSH 3.83 (0.32-4.0) uIU/mL Salicylates < 5.0 L (15-30) mg/dL Urine Opiates Screen Not Detected (Not Detect) Urine Fentanyl Screen Not Detected (Not Detect) Acetaminophen < 3 (<30) mcg/mL Ur Barbiturates Screen Not Detected (Not Detect) Valproic Acid < 12.5 L (50.0-100.0) mcg/mL Ur Phencyclidine Scrn Not Detected (Not Detect) Ur Amphetamines Screen Not Detected (Not Detect) U Benzodiazepines Scrn Not Detected (Not Detect) Urine Cocaine Screen Not Detected (Not Detect) U Marijuana (THC) Screen Not Detected (Not Detect) Ethyl Alcohol < 10 mg/dL Discharge Plan Discharge Clinical Impression: Bipolar I disorder with nirav Patient Disposition: Still a Patient Prescriptions: No Action atorvastatin 20 mg Tablet 20 mg PO BEDTIME 30 Days Qty: 30 0RF pentoxifylline 400 mg Tablet Extended Release 400 mg PO TID 30 Days Qty: 90 0RF diphenhydramine HCl [Allergy Relief(diphenhydramin)] 25 mg Tablet 25 mg PO BEDTIME PRN (Reason: Sleep) 30 Days Qty: 30 0RF gabapentin 300 mg Capsule 300 mg PO QID 30 Days Qty: 120 0RF omeprazole 20 mg Capsule,Delayed Release(Dr/Ec) 20 mg PO DAILY@0630 30 Days Qty: 30 0RF metoprolol succinate 25 mg Tablet Extended Release 24 Hr 25 mg PO DAILY 30 Days Qty: 30 0RF Protocol: Hold for SBP/HR < HOLD for SBP < : 90 HOLD for HR < : 60 Interventions: [place]-Suicide Risk Severity Scale Last Done: 01/28/24 19:46
[2024-01-28 18:07] VITALS: BP 121/65; PULSE 75; RESP 16; TEMP 36.5; O2SAT 100; BMI 38.7
[2024-01-28 19:31] LABS: MANUAL DIFF FLAG NO
[2024-01-28 19:32] LABS: Basophils Percent Auto 0.5 % (0-2); Eosinophils Absolute Auto 0.1 X10*3/uL (0.0-0.4); Hematocrit 39.6 % (37.0-47.0); Hemoglobin 13.3 g/dl (12.0-16.0); Imm Gran Abs Auto 0.01 X10*3/uL (0.00-0.03); Imm Gran Pct Auto 0.2 % (0.0-0.4); Lymphocytes Absolute Auto 1.8 X10*3/uL (1.2-4.9); Lymphocytes Percent Auto 28.3 % (20-40); Mean Corpuscular HGB Conc 33.6 g/dl (31.0-35.0); Mean Corpuscular Hemoglobin 30.5 pg (27.0-33.0); Mean Corpuscular Volume 90.8 fL (80.0-98.0); Mean Platelet Volume 11.1 fL (9.4-12.3); Monocytes Absolute Auto 0.6 X10*3/uL (0.1-1.2); Monocytes Percent Auto 8.7 % (2-11); Neutrophils Absolute Auto 3.9 x10*3/uL (2.0-8.3); Neutrophils Percent Auto 61.3 % (45-73); Platelet Count 187 X10*3/uL (160-400); Red Blood Count 4.36 X10*6/uL (4.20-5.50); Red Cell Distribution Width 13.2 % (11.0-16.0); White Blood Count 6.3 X10*3/uL (4.8-10.8)
[2024-01-28 19:58] LABS: Ethanol < 10 mg/dL
[2024-01-28 19:59] LABS: Acetaminophen LAB < 3 mcg/mL (<30); Alanine Aminotransferase 15 U/L (0-31); Albumin Level 3.8 g/dL (3.5-5.0); Alkaline Phosphatase 91 U/L (39-117); Anion Gap 13 (12-20); Aspartate Amino Transferase 20 U/L (5-31); Bilirubin Direct 0.2 mg/dL (0.0-0.5); Bilirubin Total 0.6 mg/dL (0.0-1.0); Blood Urea Nitrogen 21 mg/dL (9-16); Calcium 9.7 mg/dL (8.4-10.2); Carbon Dioxide 25 mmol/L (22-29); Chloride 105 mmol/L (96-108); Creatinine Clr Calc Pharmacy 58.8; Estimated Glomerular Filt Rate 54; Glucose Random 228 mg/dL (60-115); Potassium 3.9 mmol/L (3.3-5.1); Salicylate < 5.0 mg/dL (15-30); Sodium 139 mmol/L (135-145); Total Protein 7.1 g/dL (6.5-8.0)
[2024-01-28 20:39] LABS: Thyroid Stimulating Hormone 3.83 uIU/mL (0.32-4.0)
[2024-01-28 21:12] LABS: Amphetamine Screen Urine Not Detected (Not Detect); Barbiturates, Urine Not Detected (Not Detect); Benzodiazepines Screen Urine Not Detected (Not Detect); Cannabinoid Screen Urine Not Detected (Not Detect); Cocaine Screen Urine Not Detected (Not Detect); Fentanyl, urine Not Detected (Not Detect); Opiate Screen Urine Not Detected (Not Detect); Phencyclidine Screen Urine Not Detected (Not Detect)
--- NOTE | 2024-01-28 21:36 | MHC.EDTECH ---
Pt needed extensive assistance of 1 to transfer to a wheelchair and use the bathroom. Pt transferred well. She was then helped with personal hygiene as she was incontinent of urine. Pt cooperated well and was able to assist while we replaced her clothing with a jhonnie and a pair of ligament-free pants. Pt requested and was given a hot cup of tea. Will continue to monitor.
--- NOTE | 2024-01-28 22:47 | PC.NURSE ---
Patient unable to verify medications or last dosages with either nursing or pharmacy. Provider aware.
[2024-01-28 22:52] VITALS: BP 108/58; PULSE 77; RESP 19; TEMP 36.3; O2SAT 98
--- NOTE | 2024-01-28 23:20 | PC.NURSE ---
PT REQUIRED 1-ASSIST TO WHEELCHAIR FOR TRANSPORT TO RESTROOM.
[2024-01-28 23:49] LABS: Valproate < 12.5 mcg/mL (50.0-100.0)
[2024-01-29] VITALS: BP 134/60; PULSE 75; RESP 18; TEMP 37.4; O2SAT 98
--- NOTE | 2024-01-29 | ECG_ITS ---
Test Reason : dizzy Blood Pressure : / mmHG Vent. Rate : 099 BPM Atrial Rate : 099 BPM P-R Int : 140 ms QRS Dur : 076 ms QT Int : 346 ms P-R-T Axes : 070 -35 082 degrees QTc Int : 444 ms Sinus rhythm with occasional Premature ventricular complexes Left axis deviation Abnormal ECG No previous ECGs available Referred By: Carlos Ashley Electronically Signed By:Abdiel Lewis
[2024-01-29 06:06] VITALS: RESP 16
--- NOTE | 2024-01-29 08:24 | MHC.CM.ED ---
Addendum entered by Leila Waddell 01/29/24 13:14: Per Care Team patient is kary-psych bed search. CM consult will be deferred at this time. Original Note: Received case management consult overnight. Care team consult also ordered. Per Care Team assessment, will be reassessed by Care Team today. CM consult will be deferred until this is completed. Continue to monitor for d/c needs.
--- NOTE | 2024-01-29 09:20 | MHC.EDTECH ---
patient ate 100 breakfast was assisted to the bathroom and got washed up with teeth brushed and complete bed change
--- NOTE | 2024-01-29 09:43 | PC.NURSE ---
care team at bedside.
--- NOTE | 2024-01-29 10:34 | PC.NURSE ---
PT at bedside at this time.
[2024-01-29 10:39] VITALS: BP 134/60; PULSE 75; O2SAT 98
--- NOTE | 2024-01-29 10:41 | MHC.EDTECH ---
pt was given a pitcher of water
--- NOTE | 2024-01-29 10:49 | PC.NURSE ---
PT REFUSED VITALS, I DON'T TRUST WHAT YOU'RE DOING TO ME . PT DID NOT ANSWER PAIN ASSESSMENT APPROPRIATELY. PT HAVING JUMBLED DIALOGUE WITH STAFF.
--- NOTE | 2024-01-29 11:27 | PC.NURSE ---
Surgery at bedside at this time.
[2024-01-29 11:53] LABS: COVID-19 Test Negative (Negative); IDNOW Serial# 08D9AD1C
[2024-01-29 12:05] LABS: Appearance Urine Clear; Color Urine Yellow; Glucose Urine UA >=1000 mg/dL (Negative); Leukocyte Esterase Urine Negative (Negative); Nitrite Urine Negative (Negative); PH 5.5 (5.0-9.0); Specific Gravity - Urine 1.025 (1.005-1.025); UMIC TRIGGER UA YES; Urine Blood Negative (Negative); Urine Ketones Negative (Negative); Urine Protein Negative (Neg-Trace)
[2024-01-29 12:23] LABS: Bacteria Urine None Seen (None Seen); RBC Urine 0-2 /HPF (0-2); WBC Urine 0-5 /HPF (0-5)
--- NOTE | 2024-01-29 12:45 | MHC.EDTECH ---
pt ate 100% of her lunch
--- NOTE | 2024-01-29 13:02 | MHC.EDTECH ---
pt was assisted to the bathroom and then back to bed
[2024-01-29 14:00] VITALS: BP 129/65; PULSE 94; RESP 18; TEMP 36.4; O2SAT 94
--- NOTE | 2024-01-29 14:59 | PC.NURSE ---
THIS RN MADE ATTEMPTS TO DO PAIN ASSESSMENT, PT DID NOT ANSWER ASSESSMENT QUESTIONS APPROPRIATELY. ANSWERS DID NOT CORRESPOND WITH QUESTIONS. PT WALKED TO BATHROOM USING WALKER WITHOUT COMPLAINTS. WILL CONTINUE TO OBSERVE.
--- NOTE | 2024-01-29 15:22 | PC.NURSE ---
called [facility] pharmacy [phone] to verify medications. Patient hasn't picked up meds from this pharmacy since February of 2023, will follow up with in house pharmacy.
--- NOTE | 2024-01-29 15:54 | PHA.MEDREC ---
Pharmacy Consult ? Medication Reconciliation Pharmacy has completed the medication reconciliation. Patient difficult to speak with per RN. Patient has not filled anything from [facility] since 2022. Patient's most recently fills are from [facility] which is metoprolol, metformin and rosuvastatin. Unable to confirm if patient is taking medications or if she is taking old prescriptions . Clau Fry, PharmD
[2024-01-29 16:00] VITALS: BP 121/56; PULSE 76; RESP 16; TEMP 36.5
[2024-01-29 17:04] VITALS: BP 139/75; PULSE 88; RESP 18; TEMP 36.3; O2SAT 98
[2024-01-29 17:31] VITALS: BMI 35.2
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
[2024-01-30 06:00] VITALS: BP 124/66; PULSE 95; RESP 18; TEMP 36.2; O2SAT 96
[2024-01-30 08:24] LABS: Estimated Average Glucose 186 mg/dL; Hemoglobin A1c % 8.1 % (<6.0)
[2024-01-30 08:39] LABS: Alanine Aminotransferase 17 U/L (0-31); Albumin Level 3.8 g/dL (3.5-5.0); Alkaline Phosphatase 83 U/L (39-117); Anion Gap 14 (12-20); Aspartate Amino Transferase 22 U/L (5-31); Blood Urea Nitrogen 25 mg/dL (9-16); Calcium 9.6 mg/dL (8.4-10.2); Carbon Dioxide 25 mmol/L (22-29); Chloride 102 mmol/L (96-108); Cholesterol 169 mg/dL (<200); Creatinine Clr Calc Pharmacy 52.2; Estimated Glomerular Filt Rate 50; Glucose Fasting 338 mg/dL (60-99); HDL Cholesterol 54 mg/dL (>40); LDL Cholesterol Calculated 90 mg/dL (<100); Potassium 4.5 mmol/L (3.3-5.1); Sodium 136 mmol/L (135-145); Total Protein 7.1 g/dL (6.5-8.0); Triglycerides 129 mg/dL (<150)
[2024-01-30 08:53] LABS: Thyroid Stimulating Hormone 3.45 uIU/mL (0.32-4.0)
[2024-01-30 09:07] LABS: Vitamin B12 505 pg/mL (200-900)
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
--- NOTE | 2024-01-30 15:42 | PM.PSYDC ---
DS: Providers Provider Date of Service: 01/30/24 Date of admission: 01/29/24 16:14 Date of discharge: 01/30/24 Primary care physician: Unknown Physician Discharging clinician: Aleshia Wright DS: Diagnosis Discharge Diagnosis (1) Schizoaffective disorder: Status: Acute DS: Medications Discharge Medications Home Medications: Home Medications Medication Instructions Recorded Confirmed metformin 500 mg tablet,extended 500 mg PO DAILY 01/29/24 01/29/24 release 24 hr rosuvastatin 5 mg tablet 5 mg PO BEDTIME 01/29/24 01/29/24 Previous Rx's Medication Instructions Recorded metoprolol succinate 25 mg 25 mg PO DAILY 30 days #30 tabs 08/21/21 tablet,extended release 24 hr Mental Status Exam Mental Status Exam Narrative: Appearance:casually groomed, good hygiene, in NAD Behavior:cooperative Psychomotor:no agitation or retardation noted Speech:clear, normal rate/rhythm/volume, spontaneous TP:mostly linear at times tangential TC:wanting to go home soon Mood: good Affect:congruent, non labile SI: denies HI:denies VH/AH:appears internally preoccupied Delusions:combination of paranoid and grandiose delusions Insight/judgment:impaired x 2. Memory/cog: alert, oriented to place, month year but not situation. Data Data Completed and Pending Completed studies during hospitalization [Text1]: 01/28/24 01/28/24 01/28/24 19:21 20:57 23:22 WBC 6.3 RBC 4.36 Hgb 13.3 Hct 39.6 MCV 90.8 MCH 30.5 MCHC 33.6 RDW 13.2 Plt Count 187 MPV 11.1 Immature Gran % (Auto) 0.2 Neut % (Auto) 61.3 Lymph % (Auto) 28.3 [place] % (Auto) 8.7 Eos % (Auto) 1.0 Baso % (Auto) 0.5 Lymph # (Auto) 1.8 [place] # (Auto) 0.6 Eos # (Auto) 0.1 Baso # (Auto) 0.0 Abs Immat Gran (auto) 0.01 Absolute Neuts (auto) 3.9 Absolute Nucleated RBC 0.000 Nucleated RBC % (auto) 0.0 Sodium 139 Potassium 3.9 Chloride 105 Carbon Dioxide 25 Anion Gap 13 BUN 21 H Creatinine 1.00 Estim Creat Clear Calc 58.8 Estimated GFR 54 Random Glucose 228 H Fasting Glucose Estimat Average Glucose Hemoglobin A1c % Calcium 9.7 Total Bilirubin 0.6 Direct Bilirubin 0.2 AST 20 ALT 15 Alkaline Phosphatase 91 Total Protein 7.1 Albumin 3.8 Triglycerides Cholesterol LDL Cholesterol, Calc HDL Cholesterol Vitamin B12 Folate TSH 3.83 Urine Color Urine Appearance Urine pH Ur Specific [place] Urine Protein Urine Glucose (UA) Urine Ketones Urine Blood Urine Nitrite Ur Leukocyte Esterase Urine RBC Urine WBC Ur Squamous Epith Cells Urine Bacteria Hyaline Casts Salicylates < 5.0 L Urine Opiates Screen Not Detected Urine Fentanyl Screen Not Detected Acetaminophen < 3 Ur Barbiturates Screen Not Detected Valproic Acid < 12.5 L Ur Phencyclidine Scrn Not Detected Ur Amphetamines Screen Not Detected U Benzodiazepines Scrn Not Detected Urine Cocaine Screen Not Detected U Marijuana (THC) Screen Not Detected Ethyl Alcohol < 10 COVID-19 (ERIK) COVID-19 [employer]™ Com 01/29/24 01/29/24 01/30/24 11:19 11:56 07:57 WBC RBC Hgb Hct MCV MCH MCHC RDW Plt Count MPV Immature Gran % (Auto) Neut % (Auto) Lymph % (Auto) [place] % (Auto) Eos % (Auto) Baso % (Auto) Lymph # (Auto) [place] # (Auto) Eos # (Auto) Baso # (Auto) Abs Immat Gran (auto) Absolute Neuts (auto) Absolute Nucleated RBC Nucleated RBC % (auto) Sodium 136 Potassium 4.5 Chloride 102 Carbon Dioxide 25 Anion Gap 14 BUN 25 H Creatinine 1.07 Estim Creat Clear Calc 52.2 Estimated GFR 50 Random Glucose Fasting Glucose 338 H Estimat Average Glucose 186 Hemoglobin A1c % 8.1 H Calcium 9.6 Total Bilirubin 1.0 Direct Bilirubin AST 22 ALT 17 Alkaline Phosphatase 83 Total Protein 7.1 Albumin 3.8 Triglycerides 129 Cholesterol 169 LDL Cholesterol, Calc 90 HDL Cholesterol 54 Vitamin B12 505 Folate 10.0 TSH 3.45 Urine Color Yellow Urine Appearance Clear Urine pH 5.5 Ur Specific [place] 1.025 Urine Protein Negative Urine Glucose (UA) >=1000 H Urine Ketones Negative Urine Blood Negative Urine Nitrite Negative Ur Leukocyte Esterase Negative Urine RBC 0-2 Urine WBC 0-5 Ur Squamous Epith Cells 3-5 Urine Bacteria None Seen Hyaline Casts 3-5 Salicylates Urine Opiates Screen Urine Fentanyl Screen Acetaminophen Ur Barbiturates Screen Valproic Acid Ur Phencyclidine Scrn Ur Amphetamines Screen U Benzodiazepines Scrn Urine Cocaine Screen U Marijuana (THC) Screen Ethyl Alcohol COVID-19 (ERIK) Negative COVID-19 Clin Com See Note DS: Summary Hospital Course Hospital Course: Mrs. Bethea is a 78 y/o woman with hx of schizoaffective disorder who was brought via EMS after she called 911. Per ED documentation, pt reported she needed helped with her medications and had reported her had thrown her medications away. She denied SI/HI. She was assessed by care team and pt presented with some grandiose delusions of knowing [employer] actors and had just seen Cristian Berry here in the hospital. 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 These seem to be terminal make up operator delusions of hers. Her utox was negative. On the unit, pt presents as pleasant. She reports she came here to the hospital because her legs were weak and the doctor here figured it out, that it was that I am allergic to the influenza vaccine. She reports that now that her medical concerns have been addressed she does not have any other medical, much less psychiatric conditions that need to be addressed. She reports she lives in a Motel in [place]. She has been living in motels for years with partner. She denies that her partner is in the hospital and that he is back home awaiting for her. She reports she wants to go home today as it is Good Friday and she is practicing Shinto. She denies SI/HI. She reports she has DM but currently does not have a PCP. She reports it's hard to trust people, they are all new. She goes on to say that her partner and her have a house in [facility], and are planning to move there in the summer. She denies VH/AH. Time Spent with Patient Time attestation: Total time managing care of this patient today ____ minutes. Discharge Plan Discharge Anticipated Discharge Date/Time: 01/30/24 15:45 Patient Disposition: Home, Self-Care Discharge Diagnosis: schizoaffective disorder bipolar type Referrals: [facility] [Other] - 1 Week Discharge Medications: Continued metformin 500 mg tablet extended release 24 hr 500 mg PO DAILY Qty: 30 0RF Discontinued metoprolol succinate 25 mg Tablet Extended Release 24 Hr 25 mg PO DAILY 30 Days Qty: 30 0RF Protocol: Hold for SBP/HR < HOLD for SBP < : 90 HOLD for HR < : 60 rosuvastatin 5 mg tablet 5 mg PO BEDTIME Discharge Orders: Discharge Order (Routine); Ordered 01/30/24 Ordered By: Aleshia Wright Diet: Diabetic diet Activity on Discharge: As tolerated Stand Alone Forms: Patient Portal Discharge page Care Plan Goals: 1. Maintain mood 2. No SI/HI 3. No aggression towards self or others Health Concerns: Follow up with PCP Plan of Treatment: 1. Take medications as prescribed. Assessment: Pt with brighter, non labile affect. She is pleasant on approach. Complex system of delusions including paranoid and grandiose ideas. Appears internally preoccupied. NO SI/HI. No aggression toward self or others.
--- NOTE | 2024-01-30 17:33 | PC.NURSE ---
Patient expresses readiness for discharge. Denies pain. Denies SI/HI/AVH. All d/c instructions reviewed with patient. Patient verbalized understanding. All belongings inventoried and returned. Follow up with PCP scheduled. Escorted from unit by ANNIKA in .
== END 2024-01-30 17:20 | disposition home or self-care (01) | DRG 885 ==
LOC: HO.ED 01-29 07:58 → HO.PGERI 01-29 16:21
PROVIDERS: Emergency Medicine; Admitting Provider Social Worker; Emergency Provider Emergency Medicine; Visit Provider Social Worker
DX: F25.0 Schizoaffective disorder, bipolar type (principal); Z59.01 Sheltered homelessness; Z20.822 Contact with and (suspected) exposure to COVID-19; Z91.148 Patient's other noncompliance with medication regimen for other reason; Z79.84 Long term (current) use of oral hypoglycemic drugs
CPT/HCPCS: 36415; 80048; 80053; 80061; 80076; 80143; 80164; 80179; 80307; 81001; 82607; 82746; 83036; 84443; 85025; 87635; 93005; 97162; 99284; S9485

== ENCOUNTER → 2024-01-29 10:43 | Outpatient (BNV) | payer MEDICARE, SELFPAY | PROVIDERS: Admitting Provider Social Worker; Emergency Provider Emergency Medicine; Visit Provider Internal Medicine Cardiovascular Disease | DX: R94.31 Abnormal electrocardiogram [ECG] [EKG] (principal) | CPT/HCPCS: 93010 ==

== ENCOUNTER → 2024-01-29 16:14 | Outpatient (BNV) | payer MEDICARE, SELFPAY | PROVIDERS: Admitting Provider Social Worker; Emergency Provider Emergency Medicine; Visit Provider Social Worker | DX: F25.9 Schizoaffective disorder, unspecified (principal) | CPT/HCPCS: 99234; 99499 ==

== ENCOUNTER 2024-03-24 01:12 | Emergency (ER) | payer MEDICARE, SELFPAY ==
[2024-03-24 01:44] VITALS: BP 128/64; BP 132/76; PULSE 76; PULSE 98; RESP 16; TEMP 36.4; O2SAT 97; O2SAT 98; BMI 29.0
--- NOTE | 2024-03-24 01:50 | ED.PSYCH ---
HPI - Psych General Chief Complaint: Psychiatric Symptoms Stated Complaint: manic Time Seen by Provider: 03/24/24 01:46 Source: patient and EMS Mode of arrival: EMS Limitations: no limitations History of Present Illness ED Provider: Dr Tamayo HPI Narrative: Patient with schizoaffective disorder bipolar type comes here as she has not feeling safe at home feel that is going to kill her patient is hard of hearing and has visual problems was seen here 01/24 and admitted not taking her medications very manic when she came to the ER noticed to follow her story rambles drift off the subjects into other conversation Related Data Home Medications ?Medication ?Instructions ?Recorded ?Confirmed apixaban 5 mg tablet (Eliquis) 5 mg PO BID 03/24/24 03/24/24 gabapentin 300 mg capsule 600 mg PO BID 03/24/24 03/24/24 insulin glargine 100 unit/mL (3 14 unit subcut DAILY 03/24/24 03/24/24 mL) subcutaneous pen (Lantus Solostar U-100 Insulin) levothyroxine 25 mcg tablet 25 mcg PO QAM 03/24/24 03/24/24 metoprolol succinate 25 mg 25 mg PO DAILY 03/24/24 03/24/24 tablet,extended release 24 hr pantoprazole 40 mg tablet,delayed 40 mg PO DAILY 03/24/24 03/24/24 release rosuvastatin 5 mg tablet 5 mg PO BEDTIME 03/24/24 03/24/24 Allergies Allergy/AdvReac Type Severity Reaction Status Date / Time albumin colloid, human Allergy Unknown Verified 03/24/24 01:52 almond Allergy Unknown Verified 03/24/24 01:52 egg Allergy Unknown Verified 03/24/24 01:52 gluten Allergy Unknown Verified 03/24/24 01:52 influenza virus vaccine Allergy Unknown Verified 03/24/24 01:52 trivalent lactose Allergy Unknown Verified 03/24/24 01:52 Pork/Porcine Containing Allergy Unknown Verified 03/24/24 01:52 Products soybean Allergy Unknown Verified 03/24/24 01:52 wheat Allergy Unknown Verified 03/24/24 01:52 Review of Systems Review of Systems: Yes all other systems are reviewed and are negative PMFSH Social History Social History Household Members: Significant Other Housing: Homeless Do you presently have visiting nurse or other home services: No Unable to assess alcohol history related to: Unknown Patient Tobacco Use Status: Refuse Tobacco use screen Advance Directives: No Advance Directives Information Provided: No Do you have a plan to hurt others: No Plan service: No Sexual orientation: Straight/Heterosexual Physical Exam Vital Signs: Vital Signs: Last Vital Signs Temp 97.5 F 03/24/24 01:44 Pulse 76 03/24/24 01:44 Resp 16 03/24/24 01:44 BP 128/64 03/24/24 01:44 Pulse Ox 98 03/24/24 01:44 O2 Del Method Room Air 03/24/24 01:44 BMI result Body Mass Index 29.0 Appearance: Alert. Oriented X3. No acute distress. Eyes: No pallor or icterus ENT: Pharynx normal. Oral Mucosa moist hard of hearing Neck: Normal inspection. Neck supple. CVS: Normal heart rate and rhythm. Pulses normal. Respiratory: No respiratory distress. Equal air entry bilateral, no wheezing/rales/rhonchi Abdomen: Soft and nontender. Bowel sounds are present, no mass palpable, no CVA tenderness Skin: Skin warm and dry. Normal skin color. Normal skin turgor. Extremities: No lower extremity edema. No calf tenderness psych: internally preoccupied, paranoid, anxious no SI or HI Neuro: Oriented X 3. No motor deficit. No sensory deficit.No cerebellar signs , cranial nerves II-XII intact Medications Administered Discontinued Medications Generic Name Dose Route Start Last Admin Trade Name Freq PRN Reason Stop Dose Admin Olanzapine 5 mg 03/24/24 01:54 03/24/24 03:32 Olanzapine 5 Mg Tablet PO 03/24/24 01:55 Not Given ONCE ONE Medical Decision Making Medical Decision Making MDM Narrative: Patient has schizoaffective disorder bipolar type with acute anxiety/manic episode will give Zyprexa and will consult care team Discharge Plan Discharge Clinical Impression: Schizoaffective disorder, Bipolar disorder Patient Disposition: Still a Patient Prescriptions: No Action levothyroxine 25 mcg tablet 25 mcg PO QAM pantoprazole 40 mg tablet,delayed release (DR/EC) 40 mg PO DAILY gabapentin 300 mg capsule 600 mg PO BID metoprolol succinate 25 mg tablet extended release 24 hr 25 mg PO DAILY rosuvastatin 5 mg tablet 5 mg PO BEDTIME insulin glargine [Lantus Solostar U-100 Insulin] 100 unit/mL (3 mL) insulin pen 14 unit subcut DAILY Eliquis 5 mg tablet 5 mg PO BID Interventions: [place]-Suicide Risk Severity Scale Last Done: 03/24/24 02:19 Print Language: Occitan
--- NOTE | 2024-03-24 02:08 | PC.NURSE ---
patient loud and refusing diagnotic treatment transitioned into room 4. provided fluids.
--- NOTE | 2024-03-24 06:52 | PC.NURSE ---
Patient slept through the night, no distress observed/reported, VSS, care consult ordered, pending evaluation, pending labs, will continue to monitor
--- NOTE | 2024-03-24 07:08 | PC.NURSE ---
Assumed care of patient at 0645. Patient is observed sleeping in their bed. No signs of distress observed/reported. Breathing is even and unlabored.
--- NOTE | 2024-03-24 09:03 | PC.NURSE ---
Nursing Communication - Medications Attempted to verify home medications with patient. Patient is severely disorganized at this time and answers questions with off topic answers. Patient did report that she has been off all home medications for approx. 6 months.
--- NOTE | 2024-03-24 09:16 | MHC.CARE ---
Pt seen by CARE team for assessment and disposition is referral to case management. Pt requesting possible STR or to go to [facility].
--- NOTE | 2024-03-24 09:23 | PHA.MEDREC ---
Pharmacy Consult ? Medication Reconciliation Pharmacy has reviewed the medication reconciliation done by nursing. Nurse confirmed meds as pharmacy claims but she hasn't filled most of them (eliquis, gabapentin, lantus, levothyroxine and pantoprazole) since April of last year. Metoprolol and rosuvastatin was filled in Dec of this year but they were discontinued upon discharged from here on January 29. The only medication that she's supposed to be continued is metformin ER 500mg. The morning nurse attempted to ask patient but she is severely disorganized and she did report being off all medications for 6 months . Spoke to Dr. Swann and he just wants to continue the metformin.
[2024-03-24] MEDS: Acetaminophen 325 MG TABLET 975 MG PO (10:03)
[2024-03-24] MEDS: metFORMIN HCl ER 500 MG TAB.ER.24H PO (10:04)
[2024-03-24 11:16] LABS: MANUAL DIFF FLAG NO
[2024-03-24 11:20] LABS: Basophils Percent Auto 0.5 % (0-2); Eosinophils Percent Auto 0.5 % (0-4); Hematocrit 40.9 % (37.0-47.0); Hemoglobin 13.6 g/dl (12.0-16.0); Imm Gran Abs Auto 0.08 X10*3/uL (0.00-0.03); Lymphocytes Absolute Auto 1.5 X10*3/uL (1.2-4.9); Lymphocytes Percent Auto 18.9 % (20-40); Mean Corpuscular HGB Conc 33.3 g/dl (31.0-35.0); Mean Corpuscular Hemoglobin 29.8 pg (27.0-33.0); Mean Corpuscular Volume 89.5 fL (80.0-98.0); Mean Platelet Volume 11.1 fL (9.4-12.3); Monocytes Absolute Auto 0.7 X10*3/uL (0.1-1.2); Monocytes Percent Auto 8.9 % (2-11); Neutrophils Absolute Auto 5.6 x10*3/uL (2.0-8.3); Neutrophils Percent Auto 70.2 % (45-73); Platelet Count 226 X10*3/uL (160-400); Red Blood Count 4.57 X10*6/uL (4.20-5.50); Red Cell Distribution Width 12.8 % (11.0-16.0)
[2024-03-24 11:33] LABS: COVID-19 Test Negative (Negative); Ethanol < 10 mg/dL; IDNOW Serial# 08D9AD1C
[2024-03-24 11:37] LABS: Alanine Aminotransferase 14 U/L (0-31); Albumin Level 3.8 g/dL (3.5-5.0); Alkaline Phosphatase 104 U/L (39-117); Anion Gap 17 (12-20); Aspartate Amino Transferase 20 U/L (5-31); Bilirubin Total 0.5 mg/dL (0.0-1.0); Blood Urea Nitrogen 26 mg/dL (9-16); Calcium 9.6 mg/dL (8.4-10.2); Carbon Dioxide 21 mmol/L (22-29); Chloride 95 mmol/L (96-108); Creatinine Clr Calc Pharmacy 40.5; Estimated Glomerular Filt Rate 42; Glucose Random 591 mg/dL (60-115); Potassium 4.1 mmol/L (3.3-5.1); Sodium 129 mmol/L (135-145); Total Protein 7.5 g/dL (6.5-8.0)
--- NOTE | 2024-03-24 11:48 | PC.NURSE ---
Nursing Communication - Critical Value RN was made aware that PT's blood glucose was 591. Per Charge Nurse, the PT will be transferred to the main ED, bed 22.
[2024-03-24 11:54] LABS: TSH reflex Free T4 2.72 uIU/mL (0.32-4.0)
[2024-03-24] MEDS: Insulin Lispro 100 UNIT/ML 3 ML VIAL SUBCUT (12:44)
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
[2024-03-24 13:39] LABS: Appearance Urine Clear; Color Urine Yellow; Glucose Urine UA >=1000 mg/dL (Negative); Leukocyte Esterase Urine Negative (Negative); Nitrite Urine Negative (Negative); PH 5.5 (5.0-9.0); UMIC TRIGGER UACC YES; Urine Blood Negative (Negative); Urine Ketones Negative (Negative); Urine Protein Negative (Neg-Trace)
[2024-03-24 13:49] LABS: Amphetamine Screen Urine Not Detected (Not Detect); Barbiturates, Urine Not Detected (Not Detect); Benzodiazepines Screen Urine Not Detected (Not Detect); Buprenorphine Scr Not Detected (Not Detect); Cannabinoid Screen Urine Not Detected (Not Detect); Cocaine Screen Urine Not Detected (Not Detect); Fentanyl, urine Not Detected (Not Detect); Methadone Screen, Urine Not Detected (Not Detect); Opiate Screen Urine Not Detected (Not Detect); Oxycodone Screen Urine Not Detected (Not Detect); Phencyclidine Screen Urine Not Detected (Not Detect)
[2024-03-24 13:51] LABS: Bacteria Urine None Seen (None Seen); Hyaline Casts Urine 0-2 /LPF (0-2); RBC Urine 0-2 /HPF (0-2); Squamous Epithelial Cell Urine 0-2 /HPF (0-2); WBC Urine 0-5 /HPF (0-5)
[2024-03-24 14:56] VITALS: BP 124/69; PULSE 72; RESP 14; TEMP 36.3; O2SAT 98
--- NOTE | 2024-03-24 17:41 | PC.NURSE ---
called lab to follow up on outstanding blood work- per lab results are being entered manually at this time. nursing breakfast supervisor notified
[2024-03-24 17:48] LABS: Anion Gap 16 (12-20); Blood Urea Nitrogen 22 mg/dL (9-16); Calcium 9.6 mg/dL (8.4-10.2); Carbon Dioxide 23 mmol/L (22-29); Chloride 101 mmol/L (96-108); Estimated Glomerular Filt Rate > 60; Glucose Random 222 mg/dL (60-115); Potassium 3.9 mmol/L (3.3-5.1); Sodium 136 mmol/L (135-145)
--- NOTE | 2024-03-24 17:59 | PC.NURSE ---
chemistry resulted, random glucose 222 MD Mahmood aware
--- NOTE | 2024-03-24 18:47 | PC.NURSE ---
pt notified of discharge, sts that she cannot discharge at this time since her cant pick her up.This nurse contacted care team and Jd was booked. when presenting pt with paperwork, she stated this nurse spoke too fast, and doesn't know how to establish eye contact. Speech was slowed and attempted to discharge pt again. pt refused again to discharge, sts that we can put her anywhere in the dept if we need the room . notified
--- NOTE | 2024-03-24 18:55 | PC.NURSE ---
this nurse attempted to discharge pt again. patient continues to talk over nurse- unable to provide d/c information MD israel aware
--- NOTE | 2024-03-24 19:03 | PC.NURSE ---
Addendum entered by Jennie Coronado LPN 03/24/24 19:04: voicemail full unable to leave message Original Note: attempted to call pt Guero [phone]
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
--- NOTE | 2024-03-24 22:45 | PC.NURSE ---
pt resting quietly in the sen at this time, resps even and unlabored.
[2024-03-25] MEDS: metFORMIN HCl ER 500 MG TAB.ER.24H PO (08:03)
--- NOTE | 2024-03-25 11:43 | PC.NURSE ---
Ambulating to bathroom independently with wheeled walker , ate well for breakfast, denies pain or discomfort
--- NOTE | 2024-03-25 12:18 | PC.NURSE ---
Patient provided with adaptive equipment that allowed her to be able to hear while speaking on the phone, patients reports device worked well and was able to call who she needed to
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
[2024-03-25 17:32] VITALS: BP 134/69; PULSE 95; RESP 14; TEMP 36.4; O2SAT 97
[2024-03-25 17:33] LABS: Glucose, Whole Blood 284 mg/dL (60-115)
--- NOTE | 2024-03-25 17:43 | PC.NURSE ---
Assumed care of patient at about 1600, patient is hyperverbal and tangetial in thought process. She jumps around from concept to concept and has no perception of time/day/location. patient is calm and cooperative, offering no complaints to this RN. Patient is ambulating with steady gait around BH pod with walker (at baseline). Patient is pending psych eval at this time
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
[2024-03-26 05:27] LABS: Estimated Average Glucose 197 mg/dL; Hemoglobin A1c % 8.5 % (<6.0)
[2024-03-26 06:36] VITALS: RESP 16
--- NOTE | 2024-03-26 06:55 | PC.NURSE ---
Patient slept through the night, no distress observed/reported, meds and meals compliant, case management pending placement, VSS, will continue to monitor
--- NOTE | 2024-03-26 07:37 | PC.NURSE ---
Assumed care of patient at 0645, patient appears to be sleeping, respirations even and unlabored, no apparent distress noted. Continue plan of care for holding patient a this time
[2024-03-26] MEDS: metFORMIN HCl ER 500 MG TAB.ER.24H PO (08:51)
--- NOTE | 2024-03-26 10:19 | PC.NURSE ---
Patient ambulated to bathroom and took shower independently. Required some help dressing but was overall capable of completing ADL by herself
[2024-03-26 14:07] VITALS: BP 110/61; PULSE 98; RESP 16; TEMP 36.6; O2SAT 98
[2024-03-26 14:08] LABS: Glucose, Whole Blood 410 mg/dL (60-115)
--- NOTE | 2024-03-26 14:14 | PC.NURSE ---
Addendum entered by Christina Salazar 03/26/24 15:09: no new orders at this time Original Note: aware of elevated POC
[2024-03-26 19:49] VITALS: BP 126/50; PULSE 85; RESP 20; TEMP 36.3; O2SAT 98
[2024-03-27 04:26] VITALS: BP 138/75; PULSE 80; RESP 16; O2SAT 97
--- NOTE | 2024-03-27 06:27 | MHC.EDTECH ---
pt woke up soiled. t/w and BURTON Catherine, cleaned pt and changed pt linens in room. rn aware of incontinence.
[2024-03-27 07:28] LABS: Glucose, Whole Blood 257 mg/dL (60-115)
[2024-03-27] MEDS: Insulin Lispro 100 UNIT/ML 3 ML VIAL SUBCUT ×4 (08:10→21:15)
[2024-03-27] MEDS: metFORMIN HCl ER 500 MG TAB.ER.24H PO (08:10)
[2024-03-27 08:16] VITALS: BP 101/48; PULSE 92; RESP 18; TEMP 36.3; O2SAT 98
[2024-03-27 09:46] LABS: Cholesterol 175 mg/dL (<200); HDL Cholesterol 40 mg/dL (>40); LDL Cholesterol Calculated 100 mg/dL (<100); Triglycerides 176 mg/dL (<150)
[2024-03-27 12:10] LABS: Folate 13.4 ng/mL (> or = 4.0)
[2024-03-27 13:04] LABS: Glucose, Whole Blood 185 mg/dL (60-115)
[2024-03-27 13:25] VITALS: RESP 16
[2024-03-27 13:38] LABS: Vitamin B12 1058 pg/mL (200-900)
--- NOTE | 2024-03-27 15:45 | MHC.CM.ED ---
Patient remains in ER overflow. Repeat PT eval is pending. Continue to monitor for d/c needs.
[2024-03-27 16:45] VITALS: BP 112/69; PULSE 84; RESP 16; TEMP 36.3; O2SAT 96
[2024-03-27 18:30] LABS: Glucose, Whole Blood 221 mg/dL (60-115)
--- NOTE | 2024-03-27 19:32 | PC.NURSE ---
patient ambulates with walker back and forth to bathroom, some nice remarks to staff, patient appears in no distress.
[2024-03-27 20:44] LABS: Glucose, Whole Blood 264 mg/dL (60-115)
[2024-03-28 06:42] LABS: Glucose, Whole Blood 185 mg/dL (60-115)
--- NOTE | 2024-03-28 07:06 | PC.NURSE ---
Assumed care of patient at 0645. Patient is observed resting quietly in their bed. No signs of distress observed. Breathing is even and unlabored. Will continue plan of care.
[2024-03-28] MEDS: Insulin Lispro 100 UNIT/ML 3 ML VIAL SUBCUT ×4 (07:27→21:20)
[2024-03-28 07:46] VITALS: BP 126/66; PULSE 109; RESP 16; TEMP 36.6; O2SAT 98
[2024-03-28] MEDS: metFORMIN HCl ER 500 MG TAB.ER.24H PO (08:57)
[2024-03-28 11:36] LABS: Glucose, Whole Blood 308 mg/dL (60-115)
[2024-03-28 16:46] LABS: Glucose, Whole Blood 192 mg/dL (60-115)
--- NOTE | 2024-03-28 19:28 | PC.NURSE ---
patient appears to remain at rest at present respirations are even and unlabored patient appears in no distress
[2024-03-28 20:32] VITALS: BP 118/50; PULSE 80; RESP 20; TEMP 36.9; O2SAT 97
[2024-03-28 21:02] LABS: Glucose, Whole Blood 268 mg/dL (60-115)
--- NOTE | 2024-03-29 03:27 | PC.NURSE ---
pt resting comfortably in bed with eyes closed, breathing even and unlabored, no apparent distress noted at this time. walker at bedside
[2024-03-29 06:32] VITALS: BP 124/65; PULSE 78; RESP 19; TEMP 36.6; O2SAT 96
[2024-03-29 06:47] LABS: Glucose, Whole Blood 200 mg/dL (60-115)
--- NOTE | 2024-03-29 06:53 | PC.NURSE ---
Assumed care of patient at 0645. Patient is observed resting quietly in their room. No signs of distress observed. Breathing is even and unlabored. Will continue plan of care.
[2024-03-29] MEDS: Insulin Lispro 100 UNIT/ML 3 ML VIAL SUBCUT ×4 (07:46→20:31)
[2024-03-29] MEDS: metFORMIN HCl ER 500 MG TAB.ER.24H PO (08:14)
[2024-03-29 08:33] VITALS: BP 124/65; PULSE 78; O2SAT 96
--- NOTE | 2024-03-29 10:32 | MHC.CM.PN ---
EMR REVIEWED, PER P.T. EVAL TODAY, NO THERAPY INDICATED THEREFORE PT NOT APPROPRIATE FOR STR, CM WILL CONT TO FOLLOW FOR SAFE DC PLAN.
[2024-03-29 11:34] LABS: Glucose, Whole Blood 250 mg/dL (60-115)
[2024-03-29 14:00] VITALS: BP 118/68; PULSE 82; TEMP 36.6; O2SAT 100
[2024-03-29 16:37] LABS: Glucose, Whole Blood 167 mg/dL (60-115)
[2024-03-29 20:14] LABS: Glucose, Whole Blood 168 mg/dL (60-115)
--- NOTE | 2024-03-30 06:12 | PC.NURSE ---
Patient slept through the night, meds and meals compliant, denied SI/HI/AVH, no other distress observed/reported, VSS, patient is a case management case, disposition pending moth exterminator care placement, will continue to monitor.
[2024-03-30 06:32] VITALS: BP 125/50; PULSE 85; RESP 17; TEMP 36.9; O2SAT 95
--- NOTE | 2024-03-30 08:23 | PC.NURSE ---
Assumed care of patient at 0645, patient appears to be in no apparent distress this am. Ambulating with steady gait around BH pod, now showering independently. Patient has not eaten breakfast yet. Patient states after I am done taking this shower, take my sugars . Will hold POC until after patient showers. Continue plan of care for case management follow up
[2024-03-30 09:00] LABS: Glucose, Whole Blood 441 mg/dL (60-115)
--- NOTE | 2024-03-30 09:00 | PC.NURSE ---
aware of POC 441
[2024-03-30] MEDS: Insulin Lispro 100 UNIT/ML 3 ML VIAL SUBCUT ×3 (09:09→21:06)
[2024-03-30] MEDS: metFORMIN HCl ER 500 MG TAB.ER.24H PO (09:10)
[2024-03-30 10:36] LABS: Glucose, Whole Blood 376 mg/dL (60-115)
--- NOTE | 2024-03-30 11:15 | MHC.CM.ED ---
Addendum entered by Leila Waddell 03/30/24 12:24: Received return telephone call from Angle. Angle had a POA form when patient was living in [place] but it was only for the state [facility]. Angle reports patient receives about $3000 per month in social security and that she would be able to access patient's bank accounts at [employer]. Lilliana Coley CM director, aware of difficulty getting financials at this time in order to complete [facility] application. Original Note: Patient remains in ER BH Pod. Per psych, patient does not have capacity to make her own decisions. Per physical therapy, no skill indicated. Patient does not have [facility]. Attempted to speak to patient's daughter/HCP, Angle via telephone at [phone]. Left message requesting return telephone call. Continue to monitor for d/c needs.
[2024-03-30 13:25] LABS: Glucose, Whole Blood 137 mg/dL (60-115)
[2024-03-30 15:24] VITALS: BP 117/59; PULSE 85; RESP 20; TEMP 37.7; O2SAT 96
--- NOTE | 2024-03-30 17:32 | PC.NURSE ---
Patient has had uneventful day thus far, ambulating around BH pod, speaking on phone occasionally. Patient offers no complains to this RN
[2024-03-30 18:20] LABS: Glucose, Whole Blood 206 mg/dL (60-115)
--- NOTE | 2024-03-30 19:04 | PC.NURSE ---
patient appears to remain in room, does fixate on contacting but difficult to redirect and client is unaware of surroundings currently.
[2024-03-30 20:50] VITALS: BP 108/78; PULSE 75; RESP 16; TEMP 36.9; O2SAT 98
[2024-03-30 21:09] LABS: Glucose, Whole Blood 241 mg/dL (60-115)
[2024-03-31 05:48] VITALS: BP 110/76; PULSE 80; RESP 16; TEMP 37.1; O2SAT 98
--- NOTE | 2024-03-31 07:19 | PC.NURSE ---
Assumed care of patient at 0645, patient appears to be sleeping, respirations even and unlabored, no apparent distress noted. Continue plan of care for case management follow up
[2024-03-31 07:48] LABS: Glucose, Whole Blood 183 mg/dL (60-115)
[2024-03-31 07:59] VITALS: BP 148/74; PULSE 107; RESP 18; TEMP 36.3; O2SAT 96
[2024-03-31] MEDS: Insulin Lispro 100 UNIT/ML 3 ML VIAL SUBCUT ×3 (08:12→21:22)
[2024-03-31] MEDS: metFORMIN HCl ER 500 MG TAB.ER.24H PO (08:13)
[2024-03-31 10:57] LABS: Creatinine Clr Calc Pharmacy 35.7; Estimated Glomerular Filt Rate 36
[2024-03-31 15:42] VITALS: BP 100/51; PULSE 66; RESP 14; TEMP 37.7; O2SAT 98
[2024-03-31 15:43] VITALS: BP 123/67
--- NOTE | 2024-03-31 18:18 | PC.NURSE ---
Re: belongings all belongings are in locker 4
[2024-03-31 18:24] LABS: Glucose, Whole Blood 275 mg/dL (60-115)
[2024-03-31 18:32] LABS: Glucose, Whole Blood 130 mg/dL (60-115)
--- NOTE | 2024-03-31 19:28 | PC.NURSE ---
patient upon arrival to unit chatting w peer in group area. patient appears in no distress.
--- NOTE | 2024-03-31 19:39 | PC.NURSE ---
its against federal law to not provide undergarments to people who need them
[2024-03-31 21:24] LABS: Glucose, Whole Blood 192 mg/dL (60-115)
--- NOTE | 2024-04-01 05:58 | MHC.EDTECH ---
PER RN, WE ARE NOT PROVIDING PT WITH PLASTIC BASED UNDERGARMENTS. PT IS CAPABLE TO USE RESTROOM ON THEIR OWN. RN AWARE.
[2024-04-01 06:13] VITALS: BP 116/68; PULSE 86; RESP 16; TEMP 37.1; O2SAT 97
[2024-04-01 07:30] LABS: Glucose, Whole Blood 196 mg/dL (60-115)
[2024-04-01] MEDS: Insulin Lispro 100 UNIT/ML 3 ML VIAL SUBCUT ×3 (07:35→21:17)
[2024-04-01] MEDS: metFORMIN HCl ER 500 MG TAB.ER.24H PO (07:36)
--- NOTE | 2024-04-01 07:48 | PC.NURSE ---
awake, alert and oriented to baseline. respirations even and unlabored. eating breakfast, requesting to wash up later today.
[2024-04-01 10:04] LABS: Anion Gap 16 (12-20); Blood Urea Nitrogen 32 mg/dL (9-16); Calcium 9.2 mg/dL (8.4-10.2); Carbon Dioxide 24 mmol/L (22-29); Chloride 98 mmol/L (96-108); Creatinine Clr Calc Pharmacy 36.5; Estimated Glomerular Filt Rate 37; Potassium 4.9 mmol/L (3.3-5.1); Sodium 133 mmol/L (135-145)
[2024-04-01 10:05] LABS: Glucose Random 372 mg/dL (60-115)
[2024-04-01 13:17] LABS: Glucose, Whole Blood 264 mg/dL (60-115)
--- NOTE | 2024-04-01 14:42 | MHC.CM.ED ---
Patient remains in ER BH pod. Paperwork to affirm HCP and to petition the court for a conversator has been completed and sent to hospital drilling contractor. Will need court date. Continue to monitor for d/c needs.
[2024-04-01 15:12] VITALS: BP 104/47; PULSE 93; RESP 16; TEMP 36.1; O2SAT 92
[2024-04-01 18:13] LABS: Glucose, Whole Blood 158 mg/dL (60-115)
--- NOTE | 2024-04-01 19:18 | PC.NURSE ---
patient appears relaxed, socializing periodically ad symone in milieu stopping staff periodically to plead her case for a change opf venue (patient doesnt seem to have a grasp of ability for self care) patient seems in no acute distress.
[2024-04-01 20:10] VITALS: BP 109/43; PULSE 97; RESP 20; TEMP 36.6; O2SAT 95
[2024-04-01 21:19] LABS: Glucose, Whole Blood 261 mg/dL (60-115)
[2024-04-02 06:49] LABS: Glucose, Whole Blood 164 mg/dL (60-115)
[2024-04-02 06:58] VITALS: BP 118/51; PULSE 88; RESP 17; TEMP 37.1; O2SAT 96
[2024-04-02] MEDS: Insulin Lispro 100 UNIT/ML 3 ML VIAL SUBCUT ×4 (07:51→22:43)
[2024-04-02] MEDS: metFORMIN HCl ER 500 MG TAB.ER.24H PO (08:55)
[2024-04-02 09:21] VITALS: BP 115/65; PULSE 109; RESP 16; TEMP 37.2; O2SAT 95
[2024-04-02 11:47] LABS: Glucose, Whole Blood 247 mg/dL (60-115)
[2024-04-02 16:56] LABS: Glucose, Whole Blood 178 mg/dL (60-115)
[2024-04-02 16:59] VITALS: BP 102/60; PULSE 73; RESP 18; TEMP 36.6; O2SAT 97
[2024-04-02] MEDS: Magnesium Hydrox/Alum Hydrox 30 ML ORAL.SUSP PO (19:36)
[2024-04-02 21:19] LABS: Glucose, Whole Blood 211 mg/dL (60-115)
[2024-04-03 01:27] VITALS: BP 130/61; PULSE 84; RESP 17; TEMP 36.7; O2SAT 96
[2024-04-03 07:38] LABS: Glucose, Whole Blood 154 mg/dL (60-115)
--- NOTE | 2024-04-03 08:03 | PC.NURSE ---
Assumed care of patient at 0645, patient appears to be in no apparent this am, up eating breakfast and now cleaning up in the bathroom. Patient offers no complaints to this RN. Continue plan of care for case management follow up
[2024-04-03] MEDS: metFORMIN HCl ER 500 MG TAB.ER.24H PO (08:19)
[2024-04-03 13:16] LABS: Glucose, Whole Blood 278 mg/dL (60-115)
[2024-04-03] MEDS: Insulin Lispro 100 UNIT/ML 3 ML VIAL SUBCUT ×2 (13:25→21:32)
[2024-04-03 15:56] VITALS: BP 113/83; PULSE 87; RESP 20; TEMP 36.9; O2SAT 95
[2024-04-03 18:11] LABS: Glucose, Whole Blood 124 mg/dL (60-115)
[2024-04-03 20:23] LABS: Glucose, Whole Blood 180 mg/dL (60-115)
[2024-04-04 02:54] VITALS: BP 117/55; PULSE 118; RESP 17; TEMP 37.1; O2SAT 98
--- NOTE | 2024-04-04 06:46 | PC.NURSE ---
Patient slept through the night, no distress observed/reported, no behavior issues, med and meals compliant, disposition pending case management pending placement, will continue to monitor
--- NOTE | 2024-04-04 07:36 | PC.NURSE ---
Assumed care of patient at 0645, patient appears to be sleeping, respirations even and unlabored, no apparent distress noted. Continue plan of care case management follow up
[2024-04-04] MEDS: metFORMIN HCl ER 500 MG TAB.ER.24H PO (09:10)
[2024-04-04 09:20] LABS: Glucose, Whole Blood 159 mg/dL (60-115)
[2024-04-04] MEDS: Insulin Lispro 100 UNIT/ML 3 ML VIAL SUBCUT ×4 (09:33→21:27)
[2024-04-04 11:08] LABS: Glucose, Whole Blood 256 mg/dL (60-115)
[2024-04-04 13:17] LABS: Glucose, Whole Blood 207 mg/dL (60-115)
[2024-04-04 15:08] VITALS: BP 112/85; PULSE 99; RESP 20; TEMP 37.1; O2SAT 97
--- NOTE | 2024-04-04 16:16 | PC.NURSE ---
Patient is sitting in common area conversing with another patient. Patient appears to be in no apparent distress, offering no complaints to this RN
[2024-04-04 18:00] LABS: Glucose, Whole Blood 157 mg/dL (60-115)
--- NOTE | 2024-04-04 19:46 | PC.NURSE ---
this rn assumed care of pt, pt in common area talking on phone at this time. no acute distress noted.
[2024-04-04 21:21] LABS: Glucose, Whole Blood 162 mg/dL (60-115)
--- NOTE | 2024-04-04 21:30 | PC.NURSE ---
pt medicated per mar with insulin per protocol, tolerated well.
[2024-04-05 06:13] VITALS: BP 110/86; PULSE 87; RESP 20; TEMP 36.5; O2SAT 97
[2024-04-05 07:10] LABS: Glucose, Whole Blood 153 mg/dL (60-115)
[2024-04-05] MEDS: Insulin Lispro 100 UNIT/ML 3 ML VIAL SUBCUT ×4 (07:27→20:48)
[2024-04-05] MEDS: metFORMIN HCl ER 500 MG TAB.ER.24H PO (09:08)
[2024-04-05 11:50] LABS: Glucose, Whole Blood 237 mg/dL (60-115)
--- NOTE | 2024-04-05 14:15 | MHC.CM.ED ---
Received notification that patient is requesting to speak to doctor to get discharged. Dr Swann made aware and asked to see patient. Continue to monitor for d/c needs.
[2024-04-05 15:25] VITALS: BP 113/63; PULSE 90; RESP 17; TEMP 36.5; O2SAT 95
[2024-04-05 17:01] LABS: Glucose, Whole Blood 159 mg/dL (60-115)
--- NOTE | 2024-04-05 19:58 | PC.NURSE ---
patient appears to remain relaxed overall in milieu, ambulates w walker to group area where she is seated and social with other peer
[2024-04-05 20:55] VITALS: BP 149/85; PULSE 86; RESP 18; TEMP 36.9; O2SAT 96
[2024-04-05 21:27] LABS: Glucose, Whole Blood 173 mg/dL (60-115)
[2024-04-06 06:07] VITALS: RESP 17
[2024-04-06 07:51] LABS: Glucose, Whole Blood 156 mg/dL (60-115)
[2024-04-06] MEDS: Insulin Lispro 100 UNIT/ML 3 ML VIAL SUBCUT ×3 (07:52→20:55)
[2024-04-06] MEDS: metFORMIN HCl ER 500 MG TAB.ER.24H PO (09:17)
[2024-04-06 11:56] LABS: Glucose, Whole Blood 229 mg/dL (60-115)
[2024-04-06 17:06] LABS: Glucose, Whole Blood 131 mg/dL (60-115)
--- NOTE | 2024-04-06 18:59 | MHC.CM.ED ---
CM met with patient. Pt does not remember meeting with CM, even though I have personally meet with her 2 previous times. CM asked what she needed and if she had any concerns. Pt spoke with CM about having a new menu, as she is sick of eating chopped chicken. Pt did mention she would like to go home, but states her blood sugars have been too high and need to be more controlled. Pt then had rambling speech about her life, her [place] heritage, her work all over the country, her Jodi and his illness and his career. She does not answer any questions asked of her, but just continues to talk about subjects. CM has heard all of these stories the last two times I spoke with her. Pt is confused. Patient did not ask about plan of care. Pt was very pleasant and engaged. CM is waiting for a court date for her affirmed HCP and Conservator. When paperwork is obtained, CM will speak with patient again and provide her with all legal paperwork. CM will met with her again at her request. CM did speak with primary RN regarding rambling conversation with patient.
--- NOTE | 2024-04-06 19:40 | PC.NURSE ---
patient appears in no distress, ambulating ad symone in group area, making phone calls. appears in no distress.
[2024-04-06 20:56] LABS: Glucose, Whole Blood 189 mg/dL (60-115)
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
[2024-04-07 05:29] VITALS: BP 110/53; PULSE 86; RESP 17; TEMP 37.2; O2SAT 92
[2024-04-07 07:46] LABS: Glucose, Whole Blood 155 mg/dL (60-115)
[2024-04-07] MEDS: Insulin Lispro 100 UNIT/ML 3 ML VIAL SUBCUT ×4 (08:07→21:03)
[2024-04-07 08:46] LABS: Creatinine Clr Calc Pharmacy 48.8; Estimated Glomerular Filt Rate 51
[2024-04-07] MEDS: metFORMIN HCl ER 500 MG TAB.ER.24H PO (09:05)
[2024-04-07 11:33] LABS: Glucose, Whole Blood 202 mg/dL (60-115)
--- NOTE | 2024-04-07 13:09 | MHC.CM.ED ---
Patient remains in ER BH Pod. Received notification from Darrion KIMBROUGH that patient is requesting to have her , Jodi visit. T/W discussed this with Lilliana Coley CM director. Since patient's HCP is invoked, patient's HCP/daughter, Angle will have to be contacted to see if she would allow a visit from Jodi. Attempted to reach Angle via telephone at [phone]. Left message requesting return telephone call. Continue to monitor for d/c needs.
[2024-04-07 16:50] LABS: Glucose, Whole Blood 191 mg/dL (60-115)
[2024-04-07 20:18] VITALS: BP 136/69; PULSE 83; RESP 18; TEMP 36.7; O2SAT 96
[2024-04-07 20:29] LABS: Glucose, Whole Blood 224 mg/dL (60-115)
[2024-04-08] MEDS: Acetaminophen 325 MG TABLET PO (03:48)
[2024-04-08 06:30] VITALS: RESP 17
--- NOTE | 2024-04-08 07:48 | PC.NURSE ---
Assumed care of patient at 0645, patient appears to be sleeping at this time, respirations even and unlabored, no apparent distress noted. Continue plan of care for case management follow up
--- NOTE | 2024-04-08 09:30 | PC.NURSE ---
Per night Rn, patient had tough time sleeping last night, will let patient sleep this morning, holding medications until patient is awake. Patient continues to sleep, respirations even and unlabored, no apparent distress noted by this RN
[2024-04-08 10:25] LABS: Glucose, Whole Blood 155 mg/dL (60-115)
[2024-04-08] MEDS: metFORMIN HCl ER 500 MG TAB.ER.24H PO (10:40)
[2024-04-08] MEDS: Insulin Lispro 100 UNIT/ML 3 ML VIAL SUBCUT ×3 (10:40→21:40)
[2024-04-08 13:05] LABS: Glucose, Whole Blood 265 mg/dL (60-115)
--- NOTE | 2024-04-08 14:12 | MHC.CM.ED ---
Addendum entered by Leila Waddell 04/08/24 14:32: Patient made aware of court date. Patient became upset and stated oh hell no. If anyone is going to be my conservator it will be my Paperwork left with patient. Unable to redirect patient to explain process of court appointed petroleum refining equipment operator. Michelle KIMBROUGH aware. Original Note: Patient remains in ER BH Pod. Court for conservator scheduled for April 19 at 10am. Continue to monitor for d/c needs.
--- NOTE | 2024-04-08 14:36 | PC.NURSE ---
Patient provided papers regarding court date for conservatorship. Patient became upset but has now calmed down. Patient on pod phone at this time
--- NOTE | 2024-04-08 17:44 | PC.NURSE ---
Patient sitting in common area watching TV, no apparent distress noted at this time
[2024-04-08 17:47] VITALS: BP 108/64; PULSE 83; RESP 18; TEMP 36.3; O2SAT 100
[2024-04-08 18:19] LABS: Glucose, Whole Blood 126 mg/dL (60-115)
[2024-04-08 21:24] LABS: Glucose, Whole Blood 190 mg/dL (60-115)
[2024-04-09 06:02] VITALS: BP 149/110; PULSE 110; TEMP 36.8; O2SAT 95
--- NOTE | 2024-04-09 06:53 | PC.NURSE ---
Assumed care of patient at 0645, patient appears to be resting on bed, no apparent distress noted. Patient verbalizes no complaints at this time. Patient showered this am, waiting for breakfast at this time
[2024-04-09 07:43] LABS: Glucose, Whole Blood 204 mg/dL (60-115)
[2024-04-09] MEDS: Insulin Lispro 100 UNIT/ML 3 ML VIAL SUBCUT ×4 (07:44→20:29)
[2024-04-09] MEDS: metFORMIN HCl ER 500 MG TAB.ER.24H PO (08:13)
--- NOTE | 2024-04-09 09:29 | MHC.CM.PN ---
HCP INVOKED, PT AWAITING CONSERVATORSHIP FOR LTC PLACEMENT
[2024-04-09 13:06] LABS: Glucose, Whole Blood 160 mg/dL (60-115)
[2024-04-09 14:11] VITALS: BP 114/58; PULSE 85; RESP 18; TEMP 36.2; O2SAT 97
[2024-04-09 18:28] LABS: Glucose, Whole Blood 173 mg/dL (60-115)
--- NOTE | 2024-04-09 19:12 | PC.NURSE ---
patient relaxing in milieu, making phone calls, chatting at staff periodically appears in no distress.
[2024-04-09 19:36] VITALS: BP 108/51; PULSE 84; RESP 20; TEMP 37.2; O2SAT 98
[2024-04-09 20:29] LABS: Glucose, Whole Blood 216 mg/dL (60-115)
[2024-04-10 00:30] VITALS: BP 00/00; PULSE 0; RESP 0; TEMP -17.7; TEMP 0
--- NOTE | 2024-04-10 01:45 | PC.NURSE ---
late entry-patient report given to demesis t/w paclaged up patients belongings and client transported to floor w wc and walker with staff and security.
== END 2024-04-10 00:30 | disposition still patient (30) ==
PROVIDERS: Emergency Medicine; Internal Medicine; Social Worker; Emergency Provider Emergency Medicine Emergency Medical Services
DX: F25.0 Schizoaffective disorder, bipolar type (principal); F41.9 Anxiety disorder, unspecified; E11.65 Type 2 diabetes mellitus with hyperglycemia; I10 Essential (primary) hypertension; Z86.718 Personal history of other venous thrombosis and embolism; Z79.899 Other long term (current) drug therapy; Z79.4 Long term (current) use of insulin; Z79.02 Long term (current) use of antithrombotics/antiplatelets
CPT/HCPCS: 36415; 80048; 80053; 80061; 80307; 81001; 82565; 82607; 82746; 82947; 83036; 84443; 85025; 87635; 97162; 99285; S9485

== ENCOUNTER → 2024-03-24 02:03 | Outpatient (BNV) | payer MEDICARE, SELFPAY | PROVIDERS: Emergency Provider Emergency Medicine Emergency Medical Services; Visit Provider Social Worker | DX: F25.9 Schizoaffective disorder, unspecified (principal) | CPT/HCPCS: 99285 ==

== ENCOUNTER 2024-04-09 15:00 | Observation (INO) | payer MEDICARE, SELFPAY ==
--- NOTE | ~2024-04-09 | XR_ITS ---
EXAMINATION: XR CHEST CLINICAL INFORMATION: Hypoxia. COMPARISON: None available. TECHNIQUE: Frontal view of the chest was obtained. FINDINGS: The lungs are moderately expanded. Left lower lobe airspace disease. No pleural effusion. Cardiac silhouette is within normal limits. Surgical clips project over the right upper quadrant. XR/XR chest 1V IMPRESSION: Left lower lobe pneumonia. Follow-up until resolution is advised.
--- NOTE | 2024-04-09 15:02 | PM.IMHP ---
History of Present Illness Date of Service: 04/09/24 Chief Complaint: confusion 78F PMH schizoaffective disorder, cad, cva, DM, DVT (details unknown, no longer on AC), htn, presented to ED 03/24/24 with reported chief complaint of not feeling safe at home. was deemed not to have capacity for most decisions and unsafe to go home, was not considered candidate for inpatient psychiatry, therefore, will be admitted while conservatorship pending for LTC. patient has no active complaints Review of Systems Review of Systems: Yes all other systems are reviewed and are negative [facility] History Hyperglycemia due to type 2 diabetes mellitus DVT (deep venous thrombosis) Hypertension CVA (cerebral vascular accident) CAD (coronary artery disease) Social History Household Members: Significant Other Housing: Homeless Do you presently have visiting nurse or other home services: No Unable to assess alcohol history related to: Unknown Patient Tobacco Use Status: Refuse Tobacco use screen Advance Directives: Yes Advance Directives on File: Yes Advance Directives Date on File: 03/25/24 service: No Sexual orientation: Straight/Heterosexual Meds Allergies Allergy/AdvReac Type Severity Reaction Status Date / Time albumin colloid, human Allergy Unknown Verified 03/24/24 01:52 almond Allergy Unknown Verified 03/24/24 01:52 egg Allergy Unknown Verified 03/24/24 01:52 gluten Allergy Unknown Verified 03/24/24 01:52 influenza virus vaccine Allergy Unknown Verified 03/24/24 01:52 trivalent lactose Allergy Unknown Verified 03/24/24 01:52 Pork/Porcine Containing Allergy Unknown Verified 03/24/24 01:52 Products soybean Allergy Unknown Verified 03/24/24 01:52 wheat Allergy Unknown Verified 03/24/24 01:52 Home Medications ?Medication ?Instructions ?Recorded ?Confirmed ?Last Taken ?Type apixaban 5 mg tablet (Eliquis) 5 mg PO BID 03/24/24 03/24/24 Unknown History gabapentin 300 mg capsule 600 mg PO BID 03/24/24 03/24/24 Unknown History insulin glargine 100 unit/mL (3 14 unit subcut DAILY 03/24/24 03/24/24 Unknown History mL) subcutaneous pen (Lantus Solostar U-100 Insulin) levothyroxine 25 mcg tablet 25 mcg PO QAM 03/24/24 03/24/24 Unknown History metformin 500 mg tablet,extended 500 mg PO DAILY 03/24/24 03/24/24 Unknown History release 24 hr metoprolol succinate 25 mg 25 mg PO DAILY 03/24/24 03/24/24 Unknown History tablet,extended release 24 hr pantoprazole 40 mg tablet,delayed 40 mg PO DAILY 03/24/24 03/24/24 Unknown History release rosuvastatin 5 mg tablet 5 mg PO BEDTIME 03/24/24 03/24/24 Unknown History Physical Exam Vital Signs and Narrative: General: AO X 2, no acute distress Resp: CTA bilateral, no accessory muscles used CVS: S1,S2,RRR GI: soft, non tender, non distended Neuro: motor grossly intact, alert Psych: confused Assessment and Plan (1) CAD (coronary artery disease): Status: Acute Plan 78F PMH schizoaffective disorder, cad, cva, DM, DVT (details unknown, no longer on AC), htn being admitted from ED for placement schizoaffective disorder will try risperdal dm metformin iss cad, cva, hisotry of dvt, htn has not been on meds for over a years, exact history of PMH unkown found listed in [facility] records dvt prophylaxis - lovenox full code Quality Stroke Does the patient have a stroke diagnosis?: No VTE Prior VTE?: Yes VTE Risk Level:: Medical - moderate - high VTE Device Contraindication: Treatment Not Indicated VTE Drug Contraindication: N/A - Med Ordered
[2024-04-10 00:35] VITALS: BP 126/60; PULSE 98; RESP 18; TEMP 36.4; O2SAT 96
[2024-04-10 00:48] VITALS: BMI 34.9
[2024-04-10 07:23] VITALS: BP 125/58; PULSE 86; RESP 18; TEMP 36.7; O2SAT 97
[2024-04-10 07:29] LABS: Glucose, Whole Blood 140 mg/dL (60-115)
[2024-04-10] MEDS: metFORMIN HCl 500 MG TABLET PO (09:14)
[2024-04-10 09:32] LABS: Anion Gap 14 (12-20); Blood Urea Nitrogen 14 mg/dL (9-16); Carbon Dioxide 23 mmol/L (22-29); Chloride 105 mmol/L (96-108); Estimated Glomerular Filt Rate 60; Glucose Random 144 mg/dL (60-115); Potassium 3.9 mmol/L (3.3-5.1); Sodium 138 mmol/L (135-145)
--- NOTE | 2024-04-10 10:26 | P.PNIM_ITS ---
Subjective Subjective Date of Service: 04/10/24 Interval History: no complaints Physical Exam 2 Vital Signs: Vital Signs: Last Vital Signs Temp 98.1 F 04/10/24 07:23 Pulse 86 04/10/24 07:23 Resp 18 04/10/24 07:23 BP 125/58 L 04/10/24 07:23 Pulse Ox 97 04/10/24 07:23 O2 Del Method Room Air 04/10/24 07:23 BMI result Body Mass Index 34.9 General: AO X 2, no acute distress Resp: CTA bilateral, no accessory muscles used CVS: S1,S2,RRR GI: soft, non tender, non distended Neuro: motor grossly intact, alert Objective Data Active Medications Enoxaparin Sodium (Enoxaparin Sodium 40 Mg/0.4 Ml Syringe) 40 mg SUBCUT Q24H [facility] Glucose (Glucose Gel 15 Gm Gel..Gram.) 15 gm PO Q15M PRN; Protocol PRN Reason: per Hypoglycemia Standing Ord. Dextrose (D10) 250 mls @ 750 mls/hr IV Q15M PRN; Protocol PRN Reason: per Hypoglycemia Standing Ord. Insulin Human Lispro (Insulin Lispro 100 Unit/Ml 3 Ml Vial) 0 unit SUBCUT QIDACHS [facility]; Protocol Last Admin: 04/10/24 08:02 Dose: Not Given Documented By: NAYELY Non-Admin Reason: No Insulin Coverage Metformin HCl (Metformin Hcl 500 Mg Tablet) 500 mg PO DAILY [facility] Last Admin: 04/10/24 09:14 Dose: 500 mg Documented By: NAYELY Risperidone (Risperidone 0.5 Mg Tablet) 0.5 mg PO BID [facility] Last Admin: 04/10/24 09:33 Dose: Not Given Documented By: NAYELY Non-Admin Reason: Patient Refused Sodium Chloride (0.9 % Sodium Chloride Flush 3 Ml Syringe) 3 ml IVFLUSH QSHIFT [facility] Last Admin: 04/10/24 09:13 Dose: Not Given Documented By: NAYELY Non-Admin Reason: No Access Labs 04/10/24 09:00 Labs: Laboratory Results - last 24 hr 04/10/24 04/10/24 07:22 09:00 Anion Gap 14 Estim Creat Clear Calc 59.0 Estimated GFR 60 POC Glucose 140 H Random Glucose 144 H Calcium 9.0 Assessment and Plan (1) Bipolar disorder: Status: Acute Plan 78F PMH schizoaffective disorder, cad, cva, DM, DVT (details unknown, no longer on AC), htn being admitted from ED for placement schizoaffective disorder trial of risperdal dm metformin iss cad, cva, hisotry of dvt, htn has not been on meds for over a years, exact history of PMH unknown found listed in [facility] records dvt prophylaxis - lovenox full code Quality Stroke Does the patient have a stroke diagnosis?: No VTE Prior VTE?: Yes VTE Risk Level:: Medical - moderate - high VTE Device Contraindication: Treatment Not Indicated VTE Drug Contraindication: N/A - Med Ordered
[2024-04-10 11:38] LABS: Glucose, Whole Blood 291 mg/dL (60-115)
[2024-04-10] MEDS: Insulin Lispro 100 UNIT/ML 3 ML VIAL SUBCUT ×2 (12:16→21:16)
[2024-04-10] MEDS: Fondaparinux Sodium 2.5 MG/0.5 ML SYRINGE SUBCUT (12:16)
[2024-04-10 15:33] VITALS: BP 112/54; PULSE 82; RESP 18; TEMP 36.3; O2SAT 96
[2024-04-10 16:53] LABS: Glucose, Whole Blood 143 mg/dL (60-115)
[2024-04-10 20:00] VITALS: BP 108/53; PULSE 91; RESP 16; TEMP 36.7; O2SAT 94
[2024-04-10 20:54] LABS: Glucose, Whole Blood 185 mg/dL (60-115)
[2024-04-10] MEDS: risperiDONE 0.5 MG TABLET PO (21:13)
[2024-04-10 23:43] VITALS: BP 116/61; PULSE 83; RESP 16; TEMP 37.2; O2SAT 98
[2024-04-11 03:23] VITALS: BP 110/53; PULSE 84; RESP 16; TEMP 36.8; O2SAT 94
[2024-04-11 07:26] VITALS: BP 107/55; PULSE 86; RESP 18; TEMP 36.7; O2SAT 98
[2024-04-11 07:31] LABS: Glucose, Whole Blood 175 mg/dL (60-115)
[2024-04-11] MEDS: metFORMIN HCl 500 MG TABLET PO (07:58)
[2024-04-11] MEDS: Insulin Lispro 100 UNIT/ML 3 ML VIAL SUBCUT ×4 (07:58→21:26)
--- NOTE | 2024-04-11 08:41 | P.PNIM_ITS ---
Subjective Subjective Date of Service: 04/11/24 Interval History: no complaints Physical Exam 2 Vital Signs: Vital Signs: Last Vital Signs Temp 98.0 F 04/11/24 07:26 Pulse 86 04/11/24 07:26 Resp 18 04/11/24 07:26 BP 107/55 L 04/11/24 07:26 Pulse Ox 98 04/11/24 07:26 O2 Del Method Room Air 04/11/24 07:26 BMI result Body Mass Index 34.9 General: AO X 2, no acute distress Resp: CTA bilateral, no accessory muscles used CVS: S1,S2,RRR GI: soft, non tender, non distended Neuro: motor grossly intact, alert Objective Data Active Medications Fondaparinux (Fondaparinux Sodium 2.5 Mg/0.5 Ml Syringe) 2.5 mg SUBCUT Q24H [facility] Last Admin: 04/10/24 12:16 Dose: 2.5 mg Documented By: NAYELY Glucose (Glucose Gel 15 Gm Gel..Gram.) 15 gm PO Q15M PRN; Protocol PRN Reason: per Hypoglycemia Standing Ord. Dextrose (D10) 250 mls @ 750 mls/hr IV Q15M PRN; Protocol PRN Reason: per Hypoglycemia Standing Ord. Insulin Human Lispro (Insulin Lispro 100 Unit/Ml 3 Ml Vial) 0 unit SUBCUT QIDACHS [facility]; Protocol Last Admin: 04/11/24 07:58 Dose: 2 unit Documented By: LEONARDO Metformin HCl (Metformin Hcl 500 Mg Tablet) 500 mg PO DAILY [facility] Last Admin: 04/11/24 07:58 Dose: 500 mg Documented By: LEONARDO Risperidone (Risperidone 0.5 Mg Tablet) 0.5 mg PO BID [facility] Last Admin: 04/11/24 08:00 Dose: Not Given Documented By: LEONARDO Non-Admin Reason: Patient Refused Sodium Chloride (0.9 % Sodium Chloride Flush 3 Ml Syringe) 3 ml IVFLUSH QSHIFT [facility] Last Admin: 04/11/24 07:55 Dose: Not Given Documented By: LEONARDO Non-Admin Reason: No Access Labs 04/10/24 09:00 Labs: Laboratory Results - last 24 hr 04/10/24 04/10/24 04/10/24 09:00 11:24 16:32 Anion Gap 14 Estim Creat Clear Calc 59.0 Estimated GFR 60 POC Glucose 291 H 143 H Random Glucose 144 H Calcium 9.0 04/10/24 04/11/24 20:49 07:25 Anion Gap Estim Creat Clear Calc Estimated GFR POC Glucose 185 H 175 H Random Glucose Calcium Assessment and Plan (1) Bipolar disorder: Status: Inactive Plan 78F PMH schizoaffective disorder, cad, cva, DM, DVT (details unknown, no longer on AC), htn being admitted from ED for placement schizoaffective disorder trial of risperdal dm metformin iss cad, cva, hisotry of dvt, htn has not been on meds for over a years, exact history of PMH unknown found listed in [facility] records dvt prophylaxis - fondaparinux (reported pork allergy) full code Quality Stroke Does the patient have a stroke diagnosis?: No VTE Prior VTE?: Yes VTE Risk Level:: Medical - moderate - high VTE Device Contraindication: Treatment Not Indicated VTE Drug Contraindication: N/A - Med Ordered
[2024-04-11 11:09] LABS: Glucose, Whole Blood 269 mg/dL (60-115)
[2024-04-11] MEDS: Fondaparinux Sodium 2.5 MG/0.5 ML SYRINGE SUBCUT (11:20)
[2024-04-11 16:32] VITALS: BP 113/57; PULSE 95; RESP 20; TEMP 36.4; O2SAT 98
[2024-04-11 17:13] LABS: Glucose, Whole Blood 184 mg/dL (60-115)
[2024-04-11 20:04] LABS: Glucose, Whole Blood 224 mg/dL (60-115)
[2024-04-11] MEDS: risperiDONE 0.5 MG TABLET PO (21:27)
[2024-04-11 23:27] VITALS: BP 120/62; PULSE 90; RESP 18; TEMP 36.8; O2SAT 98
[2024-04-12 07:11] VITALS: BP 109/54; PULSE 77; RESP 16; TEMP 36.2; O2SAT 95
[2024-04-12 07:40] LABS: Glucose, Whole Blood 191 mg/dL (60-115)
[2024-04-12] MEDS: metFORMIN HCl 500 MG TABLET PO (08:09)
[2024-04-12] MEDS: Insulin Lispro 100 UNIT/ML 3 ML VIAL SUBCUT ×4 (08:09→20:24)
[2024-04-12] MEDS: risperiDONE 0.5 MG TABLET PO ×2 (08:09→19:59)
--- NOTE | 2024-04-12 08:23 | HO.PM.IMPN ---
Subjective Subjective Date of Service: 04/12/24 Interval History: no complaints Physical Exam Vital Signs: Vital Signs: Last Vital Signs Temp 97.2 F 04/12/24 07:11 Pulse 77 04/12/24 07:11 Resp 16 04/12/24 07:11 BP 109/54 L 04/12/24 07:11 Pulse Ox 95 04/12/24 07:11 O2 Del Method Room Air 04/12/24 07:11 BMI result Body Mass Index 34.9 General: AO X 2, no acute distress Resp: CTA bilateral, no accessory muscles used CVS: S1,S2,RRR GI: soft, non tender, non distended Neuro: motor grossly intact, alert Objective Data Active Medications Fondaparinux (Fondaparinux Sodium 2.5 Mg/0.5 Ml Syringe) 2.5 mg SUBCUT Q24H [facility] Last Admin: 04/11/24 11:20 Dose: 2.5 mg Documented By: LEONARDO Glucose (Glucose Gel 15 Gm Gel..Gram.) 15 gm PO Q15M PRN; Protocol PRN Reason: per Hypoglycemia Standing Ord. Dextrose (D10) 250 mls @ 750 mls/hr IV Q15M PRN; Protocol PRN Reason: per Hypoglycemia Standing Ord. Insulin Human Lispro (Insulin Lispro 100 Unit/Ml 3 Ml Vial) 0 unit SUBCUT QIDACHS [facility]; Protocol Last Admin: 04/12/24 08:09 Dose: 2 unit Documented By: TREE Metformin HCl (Metformin Hcl 500 Mg Tablet) 500 mg PO DAILY [facility] Last Admin: 04/12/24 08:09 Dose: 500 mg Documented By: TREE Risperidone (Risperidone 0.5 Mg Tablet) 0.5 mg PO BID [facility] Last Admin: 04/12/24 08:09 Dose: 0.5 mg Documented By: TREE Sodium Chloride (0.9 % Sodium Chloride Flush 3 Ml Syringe) 3 ml IVFLUSH QSHIFT [facility] Last Admin: 04/12/24 08:12 Dose: Not Given Documented By: TREE Non-Admin Reason: No Access Labs 04/10/24 09:00 Labs: Laboratory Results - last 24 hr 04/11/24 04/11/24 04/11/24 10:56 16:49 19:59 POC Glucose 269 H 184 H 224 H 04/12/24 07:37 POC Glucose 191 H Assessment and Plan (1) Bipolar disorder: Status: Inactive Plan 78F PMH schizoaffective disorder, cad, cva, DM, DVT (details unknown, no longer on AC), htn being admitted from ED for placement schizoaffective disorder trial of risperdal dm metformin iss cad, cva, hisotry of dvt, htn has not been on meds for over a years, exact history of PMH unknown found listed in [facility] records dvt prophylaxis - fondaparinux (reported pork allergy) full code Quality Stroke Does the patient have a stroke diagnosis?: No VTE Prior VTE?: Yes VTE Risk Level:: Medical - moderate - high VTE Device Contraindication: Treatment Not Indicated VTE Drug Contraindication: N/A - Med Ordered
[2024-04-12] MEDS: Fondaparinux Sodium 2.5 MG/0.5 ML SYRINGE SUBCUT (10:22)
[2024-04-12 11:22] LABS: Glucose, Whole Blood 236 mg/dL (60-115)
[2024-04-12 15:15] VITALS: BP 109/52; PULSE 81; RESP 12; TEMP 36.6; O2SAT 97
[2024-04-12 16:19] LABS: Glucose, Whole Blood 165 mg/dL (60-115)
[2024-04-12 20:18] LABS: Glucose, Whole Blood 219 mg/dL (60-115)
[2024-04-12 23:43] VITALS: BP 126/59; PULSE 81; RESP 17; TEMP 36.7; O2SAT 95
[2024-04-13 07:07] VITALS: BP 122/62; PULSE 89; RESP 14; TEMP 36; O2SAT 95
[2024-04-13 07:16] LABS: Glucose, Whole Blood 172 mg/dL (60-115)
[2024-04-13] MEDS: Insulin Lispro 100 UNIT/ML 3 ML VIAL SUBCUT ×4 (08:08→20:25)
[2024-04-13] MEDS: risperiDONE 0.5 MG TABLET PO ×2 (08:09→20:23)
[2024-04-13] MEDS: metFORMIN HCl 500 MG TABLET PO (08:09)
--- NOTE | 2024-04-13 08:29 | HO.PM.IMPN ---
Subjective Subjective Date of Service: 04/13/24 Interval History: no complaints Physical Exam Vital Signs: Vital Signs: Last Vital Signs Temp 96.8 F 04/13/24 07:07 Pulse 89 04/13/24 07:07 Resp 14 04/13/24 07:07 BP 122/62 04/13/24 07:07 Pulse Ox 95 04/13/24 07:07 O2 Del Method Room Air 04/13/24 07:07 BMI result Body Mass Index 34.9 General: AO X 2, no acute distress Resp: CTA bilateral, no accessory muscles used CVS: S1,S2,RRR GI: soft, non tender, non distended Neuro: motor grossly intact, alert Objective Data Active Medications Fondaparinux (Fondaparinux Sodium 2.5 Mg/0.5 Ml Syringe) 2.5 mg SUBCUT Q24H [facility] Last Admin: 04/12/24 10:22 Dose: 2.5 mg Documented By: TREE Glucose (Glucose Gel 15 Gm Gel..Gram.) 15 gm PO Q15M PRN; Protocol PRN Reason: per Hypoglycemia Standing Ord. Dextrose (D10) 250 mls @ 750 mls/hr IV Q15M PRN; Protocol PRN Reason: per Hypoglycemia Standing Ord. Insulin Human Lispro (Insulin Lispro 100 Unit/Ml 3 Ml Vial) 0 unit SUBCUT QIDACHS [facility]; Protocol Last Admin: 04/13/24 08:08 Dose: 2 unit Documented By: TREE Metformin HCl (Metformin Hcl 500 Mg Tablet) 500 mg PO DAILY [facility] Last Admin: 04/13/24 08:09 Dose: 500 mg Documented By: TREE Risperidone (Risperidone 0.5 Mg Tablet) 0.5 mg PO BID [facility] Last Admin: 04/13/24 08:09 Dose: 0.5 mg Documented By: TREE Sodium Chloride (0.9 % Sodium Chloride Flush 3 Ml Syringe) 3 ml IVFLUSH QSHIFT [facility] Last Admin: 04/13/24 07:33 Dose: Not Given Documented By: TREE Non-Admin Reason: No Access Labs 04/10/24 09:00 Labs: Laboratory Results - last 24 hr 04/12/24 04/12/24 04/12/24 11:19 16:14 20:06 POC Glucose 236 H 165 H 219 H 04/13/24 07:10 POC Glucose 172 H Assessment and Plan (1) Bipolar disorder: Status: Inactive Plan 78F PMH schizoaffective disorder, cad, cva, DM, DVT (details unknown, no longer on AC), htn being admitted from ED for placement schizoaffective disorder trial of risperdal dm metformin iss cad, cva, hisotry of dvt, htn has not been on meds for over a year, exact history of PMH unknown found listed in [facility] records dvt prophylaxis - fondaparinux (reported pork allergy) full code reason for continued hospitalization:awaiting [facility] Quality Stroke Does the patient have a stroke diagnosis?: No VTE Prior VTE?: Yes VTE Risk Level:: Medical - moderate - high VTE Device Contraindication: Treatment Not Indicated VTE Drug Contraindication: N/A - Med Ordered
--- NOTE | 2024-04-13 08:38 | MHC.CM.PN ---
Late entry 04/10 Patient now OBS in room 370. CM spoke with daughter/HCP to notify. WHITTAKER delivered. Plan remains LTC once there is a payor in place. Per daughter, conservator court date scheduled for 04/19 @ 10am. CM will continue to follow.
[2024-04-13 11:31] LABS: Glucose, Whole Blood 179 mg/dL (60-115)
[2024-04-13] MEDS: Fondaparinux Sodium 2.5 MG/0.5 ML SYRINGE SUBCUT (11:38)
[2024-04-13 15:05] VITALS: BP 124/60; PULSE 85; RESP 16; TEMP 35.6; O2SAT 96
[2024-04-13 16:09] LABS: Glucose, Whole Blood 153 mg/dL (60-115)
[2024-04-13 20:13] LABS: Glucose, Whole Blood 195 mg/dL (60-115)
[2024-04-13 23:28] VITALS: BP 125/59; PULSE 88; RESP 16; TEMP 36.1; O2SAT 99
[2024-04-14 07:10] VITALS: BP 102/49; PULSE 75; RESP 14; TEMP 36; O2SAT 93
[2024-04-14 07:45] LABS: Glucose, Whole Blood 153 mg/dL (60-115)
[2024-04-14] MEDS: metFORMIN HCl 500 MG TABLET PO (07:51)
[2024-04-14] MEDS: risperiDONE 0.5 MG TABLET PO ×2 (07:51→20:57)
[2024-04-14] MEDS: Insulin Lispro 100 UNIT/ML 3 ML VIAL SUBCUT ×3 (07:52→20:57)
--- NOTE | 2024-04-14 10:22 | MHC.CM.PN ---
EMR reviewed. Patient continues to await court date for conservatorship. Will require LTC payor and placement.
[2024-04-14 11:24] LABS: TSH reflex Free T4 3.97 uIU/mL (0.32-4.0)
[2024-04-14 11:59] LABS: Glucose, Whole Blood 325 mg/dL (60-115)
--- NOTE | 2024-04-14 12:03 | P.PNIM_ITS ---
Subjective Subjective Date of Service: 04/14/24 Interval History: Looks comfortable no complaints Physical Exam 2 Vital Signs: Vital Signs: Last Vital Signs Temp 96.8 F 04/14/24 07:10 Pulse 75 04/14/24 07:10 Resp 14 04/14/24 07:10 BP 102/49 L 04/14/24 07:10 Pulse Ox 93 04/14/24 07:10 O2 Del Method Room Air 04/14/24 07:10 BMI result Body Mass Index 34.9 Const: Other: Constitutional : interactive, not in distress Cardiovascular : no JVP, no lower extremity edema Respiratory : bilateral chest movement, not in resp distress Gastrointestinal: soft, lax, Non tender Skin : Warm, Dry Neurological : Alert & oriented to self, No focal deficit Objective Data Active Medications Fondaparinux (Fondaparinux Sodium 2.5 Mg/0.5 Ml Syringe) 2.5 mg SUBCUT Q24H [facility] Last Admin: 04/13/24 11:38 Dose: 2.5 mg Documented By: TREE Glucose (Glucose Gel 15 Gm Gel..Gram.) 15 gm PO Q15M PRN; Protocol PRN Reason: per Hypoglycemia Standing Ord. Dextrose (D10) 250 mls @ 750 mls/hr IV Q15M PRN; Protocol PRN Reason: per Hypoglycemia Standing Ord. Insulin Human Lispro (Insulin Lispro 100 Unit/Ml 3 Ml Vial) 0 unit SUBCUT QIDACHS [facility]; Protocol Last Admin: 04/14/24 07:52 Dose: 2 unit Documented By: RACHID Metformin HCl (Metformin Hcl 500 Mg Tablet) 500 mg PO DAILY [facility] Last Admin: 04/14/24 07:51 Dose: 500 mg Documented By: RACHID Risperidone (Risperidone 0.5 Mg Tablet) 0.5 mg PO BID [facility] Last Admin: 04/14/24 07:51 Dose: 0.5 mg Documented By: RACHID Sodium Chloride (0.9 % Sodium Chloride Flush 3 Ml Syringe) 3 ml IVFLUSH QSHIFT [facility] Last Admin: 04/14/24 07:53 Dose: Not Given Documented By: RACHID Non-Admin Reason: No Access Labs 04/10/24 09:00 Labs: Laboratory Results - last 24 hr 04/13/24 04/13/24 04/14/24 16:01 20:06 07:41 POC Glucose 153 H 195 H 153 H TSH 04/14/24 04/14/24 10:15 11:45 POC Glucose 325 H TSH 3.97 Assessment and Plan (1) Schizoaffective disorder: Status: Acute Plan 78F PMH schizoaffective disorder, cad, cva, DM, DVT (details unknown, no longer on AC), htn being admitted from ED for placement schizoaffective disorder Continue trial of risperdal DM II Metformin SSI Hx CAD, CVA, Hx DVT , HTN has not been on meds for over a year, exact history of PMH unknown as we found them listed in [facility] records Hx Hypothyroid suppose to be on Levothyroxine check TSH and T4 dvt prophylaxis - fondaparinux (reported pork allergy) full code [facility] Stroke Does the patient have a stroke diagnosis?: No VTE Prior VTE?: Yes VTE Risk Level:: Medical - moderate - high VTE Device Contraindication: Treatment Not Indicated VTE Drug Contraindication: N/A - Med Ordered
[2024-04-14] MEDS: Fondaparinux Sodium 2.5 MG/0.5 ML SYRINGE SUBCUT (12:10)
[2024-04-14 15:22] VITALS: BP 90/56; PULSE 86; RESP 16; TEMP 36; O2SAT 97
[2024-04-14 16:00] VITALS: BP 127/55; PULSE 84
[2024-04-14 16:15] LABS: Glucose, Whole Blood 104 mg/dL (60-115)
[2024-04-14 20:08] LABS: Glucose, Whole Blood 198 mg/dL (60-115)
[2024-04-14 23:22] VITALS: BP 122/58; PULSE 99; RESP 18; TEMP 36.8; O2SAT 96
[2024-04-15 07:28] LABS: Glucose, Whole Blood 181 mg/dL (60-115)
[2024-04-15 07:32] VITALS: BP 123/56; PULSE 87; RESP 16; TEMP 37.1; O2SAT 93
[2024-04-15] MEDS: Insulin Lispro 100 UNIT/ML 3 ML VIAL SUBCUT ×4 (07:40→20:22)
[2024-04-15] MEDS: metFORMIN HCl 500 MG TABLET PO (07:41)
[2024-04-15] MEDS: risperiDONE 0.5 MG TABLET PO ×2 (07:41→20:22)
--- NOTE | 2024-04-15 09:33 | HO.PM.IMPN ---
Subjective Subjective Date of Service: 04/15/24 Interval History: Looks comfortable no complaints Physical Exam Vital Signs: Vital Signs: Last Vital Signs Temp 98.7 F 04/15/24 07:32 Pulse 87 04/15/24 07:32 Resp 16 04/15/24 07:32 BP 123/56 L 04/15/24 07:32 Pulse Ox 93 04/15/24 07:32 O2 Del Method Room Air 04/15/24 07:32 BMI result Body Mass Index 34.9 Const: Other: Constitutional : interactive, not in distress Cardiovascular : no JVP, no lower extremity edema Respiratory : bilateral chest movement, not in resp distress Gastrointestinal: soft, lax, Non tender Skin : Warm, Dry Neurological : Alert & oriented to self, No focal deficit Objective Data Active Medications Acetaminophen (Acetaminophen 325 Mg Tablet) 975 mg PO Q6H PRN PRN Reason: mild pain, headache or fever Fondaparinux (Fondaparinux Sodium 2.5 Mg/0.5 Ml Syringe) 2.5 mg SUBCUT Q24H [facility] Last Admin: 04/14/24 12:10 Dose: 2.5 mg Documented By: RACHID Glucose (Glucose Gel 15 Gm Gel..Gram.) 15 gm PO Q15M PRN; Protocol PRN Reason: per Hypoglycemia Standing Ord. Dextrose (D10) 250 mls @ 750 mls/hr IV Q15M PRN; Protocol PRN Reason: per Hypoglycemia Standing Ord. Insulin Human Lispro (Insulin Lispro 100 Unit/Ml 3 Ml Vial) 0 unit SUBCUT QIDACHS [facility]; Protocol Last Admin: 04/15/24 07:40 Dose: 2 unit Documented By: RUTHY Metformin HCl (Metformin Hcl 500 Mg Tablet) 500 mg PO DAILY [facility] Last Admin: 04/15/24 07:41 Dose: 500 mg Documented By: RUTHY Risperidone (Risperidone 0.5 Mg Tablet) 0.5 mg PO BID [facility] Last Admin: 04/15/24 07:41 Dose: 0.5 mg Documented By: RUTHY Sodium Chloride (0.9 % Sodium Chloride Flush 3 Ml Syringe) 3 ml IVFLUSH QSHIFT [facility] Last Admin: 04/15/24 06:28 Dose: Not Given Documented By: RUTHY Non-Admin Reason: No Access Labs 04/10/24 09:00 Labs: Laboratory Results - last 24 hr 04/14/24 04/14/24 04/14/24 10:15 11:45 16:10 POC Glucose 325 H 104 TSH 3.97 04/14/24 04/15/24 20:04 07:22 POC Glucose 198 H 181 H TSH Assessment and Plan (1) Schizoaffective disorder: Status: Acute (2) Cognitive impairment: Status: Acute Plan 78F PMH schizoaffective disorder, cad, cva, DM, DVT (details unknown, no longer on AC), htn being admitted from ED for placement schizoaffective disorder Continue trial of risperdal DM II Metformin SSI Hx CAD, CVA, Hx DVT , HTN has not been on meds for over a year, exact history of PMH unknown as we found them listed in [facility] records Hx Hypothyroid suppose to be on Levothyroxine check TSH and T4 dvt prophylaxis - fondaparinux (reported pork allergy) full code reason for continued hospitalization:awaiting conservatorship Quality Stroke Does the patient have a stroke diagnosis?: No VTE Prior VTE?: Yes VTE Risk Level:: Medical - moderate - high VTE Device Contraindication: Treatment Not Indicated VTE Drug Contraindication: N/A - Med Ordered
[2024-04-15 11:22] LABS: Glucose, Whole Blood 208 mg/dL (60-115)
[2024-04-15] MEDS: Fondaparinux Sodium 2.5 MG/0.5 ML SYRINGE SUBCUT (11:43)
[2024-04-15 16:00] VITALS: BP 120/56; PULSE 72; RESP 16; TEMP 36.7; O2SAT 94
[2024-04-15 16:31] LABS: Glucose, Whole Blood 176 mg/dL (60-115)
[2024-04-15 20:03] LABS: Glucose, Whole Blood 257 mg/dL (60-115)
[2024-04-15 23:28] VITALS: BP 116/50; PULSE 106; RESP 18; TEMP 37.8; O2SAT 93
[2024-04-15] MEDS: Acetaminophen 325 MG TABLET 975 MG PO (23:34)
[2024-04-16 00:30] VITALS: TEMP 36.9
[2024-04-16 07:15] VITALS: BP 115/59; PULSE 95; RESP 17; TEMP 36.6; O2SAT 96
[2024-04-16 07:39] LABS: Glucose, Whole Blood 159 mg/dL (60-115)
[2024-04-16] MEDS: risperiDONE 0.5 MG TABLET PO ×2 (07:55→21:18)
[2024-04-16] MEDS: metFORMIN HCl 500 MG TABLET PO (07:55)
[2024-04-16] MEDS: Insulin Lispro 100 UNIT/ML 3 ML VIAL SUBCUT ×4 (07:55→21:18)
[2024-04-16 11:26] LABS: Glucose, Whole Blood 340 mg/dL (60-115)
[2024-04-16 11:29] VITALS: O2SAT 88
--- NOTE | 2024-04-16 11:35 | HO.PM.IMPN ---
Subjective Subjective Date of Service: 04/16/24 Interval History: Looks comfortable no complaints Noticed to be hypoxic this morning , on O2 supplement Review of Systems Review of Systems: Yes all other systems are reviewed and are negative Physical Exam Vital Signs: Vital Signs: Last Vital Signs Temp 97.8 F 04/16/24 07:15 Pulse 95 04/16/24 07:15 Resp 17 04/16/24 07:15 BP 115/59 L 04/16/24 07:15 Pulse Ox 88 L 04/16/24 11:29 O2 Del Method Room Air 04/16/24 11:29 O2 Flow Rate 2.0 04/16/24 07:15 BMI result Body Mass Index 34.9 Const: Other: Constitutional : interactive, not in distress Cardiovascular : no JVP, no lower extremity edema Respiratory : bilateral chest movement with decrease air entry to the bases, not in resp distress Gastrointestinal: soft, lax, Non tender Skin : Warm, Dry Neurological : Alert & oriented to self, No focal deficit Objective Data Active Medications Acetaminophen (Acetaminophen 325 Mg Tablet) 975 mg PO Q6H PRN PRN Reason: mild pain, headache or fever Last Admin: 04/15/24 23:34 Dose: 975 mg Documented By: POLLO Fondaparinux (Fondaparinux Sodium 2.5 Mg/0.5 Ml Syringe) 2.5 mg SUBCUT Q24H [facility] Last Admin: 04/15/24 11:43 Dose: 2.5 mg Documented By: JOHN Glucose (Glucose Gel 15 Gm Gel..Gram.) 15 gm PO Q15M PRN; Protocol PRN Reason: per Hypoglycemia Standing Ord. Dextrose (D10) 250 mls @ 750 mls/hr IV Q15M PRN; Protocol PRN Reason: per Hypoglycemia Standing Ord. Insulin Human Lispro (Insulin Lispro 100 Unit/Ml 3 Ml Vial) 0 unit SUBCUT QIDACHS [facility]; Protocol Last Admin: 04/16/24 07:55 Dose: 2 unit Documented By: BERNABE Metformin HCl (Metformin Hcl 500 Mg Tablet) 500 mg PO DAILY [facility] Last Admin: 04/16/24 07:55 Dose: 500 mg Documented By: BERNABE Risperidone (Risperidone 0.5 Mg Tablet) 0.5 mg PO BID [facility] Last Admin: 04/16/24 07:55 Dose: 0.5 mg Documented By: BERNABE Sodium Chloride (0.9 % Sodium Chloride Flush 3 Ml Syringe) 3 ml IVFLUSH QSHIFT [facility] Last Admin: 04/16/24 07:55 Dose: Not Given Documented By: BERNABE Non-Admin Reason: No Access Labs 04/10/24 09:00 Labs: Laboratory Results - last 24 hr 04/15/24 04/15/24 04/16/24 16:27 19:56 07:18 POC Glucose 176 H 257 H 159 H 04/16/24 11:22 POC Glucose 340 H Assessment and Plan (1) Cognitive impairment: Status: Acute (2) Hypoxia: Status: Acute Plan 78F PMH schizoaffective disorder, cad, cva, DM, DVT (details unknown, no longer on AC), htn being admitted from ED for placement Hypoxia O2 of 88% on RA check CXR, BNP no signs of infection O2 supplement now and wean as tolerated Incentive spirometry treated underlying cause once done with evaluation schizoaffective disorder Continue trial of risperdal DM II Metformin SSI Hx CAD, CVA, Hx DVT , HTN has not been on meds for over a year, exact history of PMH unknown as we found them listed in [facility] records Hx Hypothyroid suppose to be on Levothyroxine check TSH and T4 dvt prophylaxis - fondaparinux (reported pork allergy) full code reason for continued hospitalization:awaiting conservatorship and evaluation of hypoxia Quality Stroke Does the patient have a stroke diagnosis?: No VTE Prior VTE?: Yes VTE Risk Level:: Medical - moderate - high VTE Device Contraindication: Treatment Not Indicated VTE Drug Contraindication: N/A - Med Ordered
[2024-04-16] MEDS: Fondaparinux Sodium 2.5 MG/0.5 ML SYRINGE SUBCUT (11:37)
[2024-04-16 11:40] VITALS: O2SAT 95
[2024-04-16 12:00] LABS: MANUAL DIFF FLAG NO
[2024-04-16 12:03] LABS: Basophils Percent Auto 0.2 % (0-2); Eosinophils Percent Auto 0.1 % (0-4); Hematocrit 36.4 % (37.0-47.0); Imm Gran Abs Auto 0.03 X10*3/uL (0.00-0.03); Imm Gran Pct Auto 0.4 % (0.0-0.4); Lymphocytes Absolute Auto 0.5 X10*3/uL (1.2-4.9); Lymphocytes Percent Auto 5.8 % (20-40); Mean Corpuscular Hemoglobin 29.8 pg (27.0-33.0); Mean Corpuscular Volume 90.3 fL (80.0-98.0); Mean Platelet Volume 10.6 fL (9.4-12.3); Monocytes Absolute Auto 0.6 X10*3/uL (0.1-1.2); Monocytes Percent Auto 7.8 % (2-11); Neutrophils Absolute Auto 6.9 x10*3/uL (2.0-8.3); Neutrophils Percent Auto 85.7 % (45-73); Platelet Count 185 X10*3/uL (160-400); Red Blood Count 4.03 X10*6/uL (4.20-5.50); Red Cell Distribution Width 14.3 % (11.0-16.0); White Blood Count 8.1 X10*3/uL (4.8-10.8)
--- NOTE | 2024-04-16 12:16 | MHC.CM.PN ---
EMR reviewed. Patient continues to await court date and LTC payor/placement. CM will continue to follow.
[2024-04-16 12:18] LABS: Anion Gap 11 (12-20); Blood Urea Nitrogen 15 mg/dL (9-16); Calcium 9.4 mg/dL (8.4-10.2); Carbon Dioxide 25 mmol/L (22-29); Chloride 101 mmol/L (96-108); Creatinine Clr Calc Pharmacy 54.2; Estimated Glomerular Filt Rate 54; Glucose Random 348 mg/dL (60-115); Potassium 4.3 mmol/L (3.3-5.1); Sodium 133 mmol/L (135-145)
[2024-04-16] MEDS: levoFLOXacin 750 MG TABLET PO (14:44)
[2024-04-16 15:23] VITALS: BP 142/63; PULSE 99; RESP 14; TEMP 37.2; O2SAT 94
[2024-04-16 16:21] LABS: Glucose, Whole Blood 204 mg/dL (60-115)
[2024-04-16 20:20] LABS: Glucose, Whole Blood 259 mg/dL (60-115)
[2024-04-16 23:34] VITALS: BP 127/55; PULSE 102; RESP 18; TEMP 36.8; O2SAT 94
[2024-04-17] MEDS: Acetaminophen 325 MG TABLET 975 MG PO (00:42)
[2024-04-17 06:59] LABS: B Type Natriuretic Peptide 65 pg/mL (<100)
[2024-04-17 07:28] VITALS: BP 134/64; PULSE 88; RESP 16; TEMP 36.1; O2SAT 97
[2024-04-17 07:30] LABS: Glucose, Whole Blood 196 mg/dL (60-115)
[2024-04-17] MEDS: Insulin Lispro 100 UNIT/ML 3 ML VIAL SUBCUT ×4 (08:07→21:15)
[2024-04-17] MEDS: risperiDONE 0.5 MG TABLET PO ×2 (08:07→21:15)
[2024-04-17] MEDS: metFORMIN HCl 500 MG TABLET PO (08:07)
[2024-04-17 09:11] LABS: Hematocrit 35.2 % (37.0-47.0); Hemoglobin 11.8 g/dl (12.0-16.0); Mean Corpuscular HGB Conc 33.5 g/dl (31.0-35.0); Mean Corpuscular Hemoglobin 30.4 pg (27.0-33.0); Mean Corpuscular Volume 90.7 fL (80.0-98.0); Mean Platelet Volume 11.1 fL (9.4-12.3); Platelet Count 177 X10*3/uL (160-400); Red Blood Count 3.88 X10*6/uL (4.20-5.50); Red Cell Distribution Width 14.3 % (11.0-16.0); White Blood Count 6.4 X10*3/uL (4.8-10.8)
[2024-04-17 09:20] LABS: Anion Gap 15 (12-20); Blood Urea Nitrogen 16 mg/dL (9-16); Calcium 9.2 mg/dL (8.4-10.2); Carbon Dioxide 25 mmol/L (22-29); Chloride 101 mmol/L (96-108); Creatinine Clr Calc Pharmacy 51.2; Estimated Glomerular Filt Rate 51; Glucose Random 211 mg/dL (60-115); Potassium 4.3 mmol/L (3.3-5.1); Sodium 137 mmol/L (135-145)
[2024-04-17 09:36] LABS: Procalcitonin 0.81 ng/mL
--- NOTE | 2024-04-17 10:34 | P.PNIM_ITS ---
Subjective Subjective Date of Service: 04/17/24 Interval History: mild cough no dyspnea afebrile Review of Systems Review of Systems: Yes all other systems are reviewed and are negative Physical Exam 2 Vital Signs: Vital Signs: Last Vital Signs Temp 96.9 F 04/17/24 07:28 Pulse 88 04/17/24 07:28 Resp 16 04/17/24 07:28 BP 134/64 04/17/24 07:28 Pulse Ox 97 04/17/24 07:28 O2 Del Method Nasal Cannula 04/17/24 07:28 O2 Flow Rate 2 04/17/24 07:28 BMI result Body Mass Index 34.9 Gen: in no acute distress HEENT: sclera anicteric, moist mucus membranes Neck: supple Lungs: diminished L base Heart: regular rate and rhythm, no murmurs Abd: soft, non-tender, non-distended Ext: no edema Skin: warm/well-perfused Neuro: alert and oriented to self Psych: impaired insight Const: Other: Constitutional : interactive, not in distress Cardiovascular : no JVP, no lower extremity edema Respiratory : bilateral chest movement with decrease air entry to the bases, not in resp distress Gastrointestinal: soft, lax, Non tender Skin : Warm, Dry Neurological : Alert & oriented to self, No focal deficit Objective Data Active Medications Acetaminophen (Acetaminophen 325 Mg Tablet) 975 mg PO Q6H PRN PRN Reason: mild pain, headache or fever Last Admin: 04/17/24 00:42 Dose: 975 mg Documented By: JD Fondaparinux (Fondaparinux Sodium 2.5 Mg/0.5 Ml Syringe) 2.5 mg SUBCUT Q24H [facility] Last Admin: 04/16/24 11:37 Dose: 2.5 mg Documented By: BERNABE Glucose (Glucose Gel 15 Gm Gel..Gram.) 15 gm PO Q15M PRN; Protocol PRN Reason: per Hypoglycemia Standing Ord. Dextrose (D10) 250 mls @ 750 mls/hr IV Q15M PRN; Protocol PRN Reason: per Hypoglycemia Standing Ord. Insulin Human Lispro (Insulin Lispro 100 Unit/Ml 3 Ml Vial) 0 unit SUBCUT QIDACHS [facility]; Protocol Last Admin: 04/17/24 08:07 Dose: 2 unit Documented By: CHERRI Levofloxacin (Levofloxacin 750 Mg Tablet) 750 mg PO Q24H [facility] Last Admin: 04/16/24 14:44 Dose: 750 mg Documented By: BERNABE Metformin HCl (Metformin Hcl 500 Mg Tablet) 500 mg PO DAILY [facility] Last Admin: 04/17/24 08:07 Dose: 500 mg Documented By: CHERRI Risperidone (Risperidone 0.5 Mg Tablet) 0.5 mg PO BID [facility] Last Admin: 04/17/24 08:07 Dose: 0.5 mg Documented By: CHERRI Sodium Chloride (0.9 % Sodium Chloride Flush 3 Ml Syringe) 3 ml IVFLUSH QSHIFT [facility] Last Admin: 04/17/24 07:58 Dose: Not Given Documented By: CHERRI Non-Admin Reason: No Access Labs 04/17/24 06:34 04/17/24 06:34 Labs: Laboratory Results - last 24 hr 04/16/24 04/16/24 04/16/24 11:22 11:50 16:10 MCV 90.3 MCH 29.8 MCHC 33.0 RDW 14.3 Plt Count 185 MPV 10.6 Immature Gran % (Auto) 0.4 Neut % (Auto) 85.7 H Lymph % (Auto) 5.8 L [place] % (Auto) 7.8 Eos % (Auto) 0.1 Baso % (Auto) 0.2 Lymph # (Auto) 0.5 L [place] # (Auto) 0.6 Eos # (Auto) 0.0 Baso # (Auto) 0.0 Abs Immat Gran (auto) 0.03 Absolute Neuts (auto) 6.9 Absolute Nucleated RBC 0.000 Nucleated RBC % (auto) 0.0 Hold Purple Top Anion Gap 11 L Estim Creat Clear Calc 54.2 Estimated GFR 54 POC Glucose 340 H 204 H Random Glucose 348 H Calcium 9.4 B-Natriuretic Peptide Procalcitonin 04/16/24 04/17/24 04/17/24 20:17 06:25 06:34 MCV 90.7 MCH 30.4 MCHC 33.5 RDW 14.3 Plt Count 177 MPV 11.1 Immature Gran % (Auto) Neut % (Auto) Lymph % (Auto) [place] % (Auto) Eos % (Auto) Baso % (Auto) Lymph # (Auto) [place] # (Auto) Eos # (Auto) Baso # (Auto) Abs Immat Gran (auto) Absolute Neuts (auto) Absolute Nucleated RBC 0.000 Nucleated RBC % (auto) 0.0 Hold Purple Top SEE NOTE Anion Gap 15 Estim Creat Clear Calc 51.2 Estimated GFR 51 POC Glucose 259 H Random Glucose 211 H Calcium 9.2 B-Natriuretic Peptide 65 Procalcitonin 0.81 04/17/24 07:26 MCV MCH MCHC RDW Plt Count MPV Immature Gran % (Auto) Neut % (Auto) Lymph % (Auto) [place] % (Auto) Eos % (Auto) Baso % (Auto) Lymph # (Auto) [place] # (Auto) Eos # (Auto) Baso # (Auto) Abs Immat Gran (auto) Absolute Neuts (auto) Absolute Nucleated RBC Nucleated RBC % (auto) Hold Purple Top Anion Gap Estim Creat Clear Calc Estimated GFR POC Glucose 196 H Random Glucose Calcium B-Natriuretic Peptide Procalcitonin Impressions Chest X-Ray 04/16/24 11:56 IMPRESSION: Left lower lobe pneumonia. Follow-up until resolution is advised. Assessment and Plan (1) Cognitive impairment: Status: Acute (2) Hypoxia: Status: Acute Plan d9 78yo F with schizoaffective disorder, CAD, s/p CVA, DM2, hx DVT no longer on AC, HTN admitted for inadequate self-care requiring guardianship/placement acute hypoxic resp failure due to PNA - levofloxacin 04/16-04/20, follow BCx, trend PCT, check respiratory pathogen PCR panel - wean O2 as tolerated CAD hx CVA hx DVT HTN - pt not on any treatment for these issues schizoaffective disorder - risperidone DM2 - MTF, jj-dose lispro hypothyroidism - resume LT4, recheck TSH in 4 wk [currently 3.98, goal <2.5] VTE ppx - fondaparinux dispo - LTC In my clinical judgment, the patient requires continued inpatient hospitalization for the following reasons: hypoxia/guardianship/placement Total time managing care of this patient today: 40 minutes. Quality Stroke Does the patient have a stroke diagnosis?: No VTE Prior VTE?: Yes VTE Risk Level:: Medical - moderate - high VTE Device Contraindication: Treatment Not Indicated VTE Drug Contraindication: N/A - Med Ordered
[2024-04-17 11:15] LABS: Glucose, Whole Blood 304 mg/dL (60-115)
[2024-04-17] MEDS: Fondaparinux Sodium 2.5 MG/0.5 ML SYRINGE SUBCUT (11:36)
[2024-04-17 12:10] LABS: Adenovirus PCR Not Detected (Not Detect.); Bordetella parapertussis PCR Not Detected (Not Detect.); Bordetella pertussis PCR Not Detected (Not Detect.); Chlamydia pneumoniae PCR Not Detected (Not Detect.); Coronavirus 229E PCR Not Detected (Not Detect.); Coronavirus HKU1 PCR Not Detected (Not Detect.); Coronavirus NL63 PCR Not Detected (Not Detect.); Coronavirus OC43 PCR Not Detected (Not Detect.); Human metapneumovirus PCR Not Detected (Not Detect.); Influenza A PCR Not Detected (Not Detect.); Influenza B PCR Not Detected (Not Detect.); Mycoplasma pneumoniae PCR Not Detected (Not Detect.); Parainfluenza 1 PCR Not Detected (Not Detect.); Parainfluenza 2 PCR Not Detected (Not Detect.); Parainfluenza 3 PCR Not Detected (Not Detect.); Parainfluenza 4 PCR Not Detected (Not Detect.); RSV PCR Not Detected (Not Detect.); Rhino/Enterovirus PCR Not Detected (Not Detect.)
[2024-04-17 12:15] LABS: SARS-CoV-2 PCR Not Detected (Not Detect.)
[2024-04-17] MEDS: levoFLOXacin 750 MG TABLET PO (13:54)
[2024-04-17 15:17] VITALS: BP 116/60; PULSE 108; RESP 18; TEMP 36.8; O2SAT 94
[2024-04-17 16:03] LABS: Glucose, Whole Blood 248 mg/dL (60-115)
[2024-04-17 20:16] LABS: Glucose, Whole Blood 227 mg/dL (60-115)
[2024-04-17 23:38] VITALS: BP 119/56; PULSE 90; RESP 18; TEMP 36.5; O2SAT 97
[2024-04-18] MEDS: Levothyroxine Sodium 25 MCG TABLET PO (05:03)
[2024-04-18 07:20] VITALS: BP 115/59; PULSE 85; RESP 18; TEMP 37.1; O2SAT 92
[2024-04-18 07:28] LABS: Glucose, Whole Blood 195 mg/dL (60-115)
[2024-04-18] MEDS: Insulin Lispro 100 UNIT/ML 3 ML VIAL SUBCUT ×4 (09:00→21:30)
[2024-04-18] MEDS: risperiDONE 0.5 MG TABLET PO ×2 (09:03→21:23)
[2024-04-18] MEDS: metFORMIN HCl 500 MG TABLET PO (09:10)
--- NOTE | 2024-04-18 10:07 | P.PNIM_ITS ---
Subjective Subjective Date of Service: 04/18/24 Interval History: no complaints cough resolved off O2 Review of Systems Review of Systems: Yes all other systems are reviewed and are negative Physical Exam 2 Vital Signs: Vital Signs: Last Vital Signs Temp 98.8 F 04/18/24 07:20 Pulse 85 04/18/24 07:20 Resp 18 04/18/24 07:20 BP 115/59 L 04/18/24 07:20 Pulse Ox 92 04/18/24 07:20 O2 Del Method Room Air 04/18/24 07:20 O2 Flow Rate 2 04/17/24 07:28 BMI result Body Mass Index 34.9 Gen: in no acute distress HEENT: sclera anicteric, moist mucus membranes Neck: supple Lungs: diminished L base Heart: regular rate and rhythm, no murmurs Abd: soft, non-tender, non-distended Ext: no edema Skin: warm/well-perfused Neuro: alert and oriented to self Psych: impaired insight Objective Data Active Medications Acetaminophen (Acetaminophen 325 Mg Tablet) 975 mg PO Q6H PRN PRN Reason: mild pain, headache or fever Last Admin: 04/17/24 00:42 Dose: 975 mg Documented By: JD Fondaparinux (Fondaparinux Sodium 2.5 Mg/0.5 Ml Syringe) 2.5 mg SUBCUT Q24H [facility] Last Admin: 04/17/24 11:36 Dose: 2.5 mg Documented By: CHERRI Glucose (Glucose Gel 15 Gm Gel..Gram.) 15 gm PO Q15M PRN; Protocol PRN Reason: per Hypoglycemia Standing Ord. Dextrose (D10) 250 mls @ 750 mls/hr IV Q15M PRN; Protocol PRN Reason: per Hypoglycemia Standing Ord. Insulin Human Lispro (Insulin Lispro 100 Unit/Ml 3 Ml Vial) 0 unit SUBCUT QIDACHS [facility]; Protocol Last Admin: 04/18/24 09:00 Dose: 4 unit Documented By: CHERRI Levofloxacin (Levofloxacin 750 Mg Tablet) 750 mg PO Q24H [facility] Last Admin: 04/17/24 13:54 Dose: 750 mg Documented By: YOANNAINNM Levothyroxine Sodium (Levothyroxine Sodium 25 Mcg Tablet) 25 mcg PO DAILY@0600 [facility] Last Admin: 04/18/24 05:03 Dose: 25 mcg Documented By: CAMERON Metformin HCl (Metformin Hcl 500 Mg Tablet) 500 mg PO DAILY [facility] Last Admin: 04/18/24 09:10 Dose: 500 mg Documented By: CHERRI Risperidone (Risperidone 0.5 Mg Tablet) 0.5 mg PO BID [facility] Last Admin: 04/18/24 09:03 Dose: 0.5 mg Documented By: CHERRI Sodium Chloride (0.9 % Sodium Chloride Flush 3 Ml Syringe) 3 ml IVFLUSH QSHIFT [facility] Last Admin: 04/18/24 09:01 Dose: Not Given Documented By: CHERRI Non-Admin Reason: IV Running Labs 04/17/24 06:34 04/17/24 06:34 Labs: Laboratory Results - last 24 hr 04/17/24 04/17/24 04/17/24 10:45 11:05 15:54 POC Glucose 304 H 248 H Respiratory Panel Thomas See Note Adenovirus (Rapid PCR) Not Detected B.pert (TEM-PCR) Not Detected B.parapertussis DNA PCR Not Detected C. pneumoniae DNA (PCR) Not Detected Coronavirus OC43 (PCR) Not Detected Coronavirus HKU1 (PCR) Not Detected Coronavirus 229E (PCR) Not Detected Coronavirus NL63 (PCR) Not Detected Human Metapneumovir PCR Not Detected Influenza A (RT-PCR) Not Detected Influenza B (RT-PCR) Not Detected M. pneumoniae (PCR) Not Detected Parainfluenza 1 (PCR) Not Detected Parainfluenza 2 (PCR) Not Detected Parainfluenza 3 (PCR) Not Detected Parainfluenza 4 (PCR) Not Detected RSV (PCR) Not Detected Entero/Rhino (PCR) Not Detected SARS-CoV-2 RNA (RT-PCR) Not Detected 04/17/24 04/18/24 20:12 07:22 POC Glucose 227 H 195 H Respiratory Panel Thomas Adenovirus (Rapid PCR) B.pert (TEM-PCR) B.parapertussis DNA PCR C. pneumoniae DNA (PCR) Coronavirus OC43 (PCR) Coronavirus HKU1 (PCR) Coronavirus 229E (PCR) Coronavirus NL63 (PCR) Human Metapneumovir PCR Influenza A (RT-PCR) Influenza B (RT-PCR) M. pneumoniae (PCR) Parainfluenza 1 (PCR) Parainfluenza 2 (PCR) Parainfluenza 3 (PCR) Parainfluenza 4 (PCR) RSV (PCR) Entero/Rhino (PCR) SARS-CoV-2 RNA (RT-PCR) Assessment and Plan (1) Cognitive impairment: Status: Acute (2) Hypoxia: Status: Acute Plan d10 78yo F with schizoaffective disorder, CAD, s/p CVA, DM2, hx DVT no longer on AC, HTN admitted for inadequate self-care requiring guardianship/placement acute hypoxic resp failure due to PNA - levofloxacin 04/16-04/21, follow BCx, trend PCT, respiratory pathogen PCR panel negative - weaned off O2 CAD hx CVA hx DVT HTN - pt not on any treatment for these issues schizoaffective disorder - risperidone DM2 with hyperglycemia - continue MTF, increase jj-dose lispro sliding scale hypothyroidism - resume LT4, recheck TSH in 4 wk [currently 3.98, goal <2.5] VTE ppx - fondaparinux dispo - LTC In my clinical judgment, the patient requires continued inpatient hospitalization for the following reasons: guardianship/placement Total time managing care of this patient today: 35 minutes. Quality Stroke Does the patient have a stroke diagnosis?: No VTE Prior VTE?: Yes VTE Risk Level:: Medical - moderate - high VTE Device Contraindication: Treatment Not Indicated VTE Drug Contraindication: N/A - Med Ordered
[2024-04-18 11:12] LABS: Glucose, Whole Blood 270 mg/dL (60-115)
[2024-04-18] MEDS: Fondaparinux Sodium 2.5 MG/0.5 ML SYRINGE SUBCUT (11:40)
[2024-04-18] MEDS: levoFLOXacin 750 MG TABLET PO (13:47)
[2024-04-18 14:59] VITALS: BP 118/58; PULSE 80; RESP 18; TEMP 36.7; O2SAT 95
[2024-04-18 16:15] LABS: Glucose, Whole Blood 163 mg/dL (60-115)
[2024-04-18 20:21] LABS: Glucose, Whole Blood 237 mg/dL (60-115)
[2024-04-18 23:44] VITALS: BP 134/60; PULSE 79; RESP 16; TEMP 36.9; O2SAT 95
[2024-04-19] MEDS: Levothyroxine Sodium 25 MCG TABLET PO (05:25)
[2024-04-19 06:34] LABS: Hematocrit 33.4 % (37.0-47.0); Hemoglobin 11.1 g/dl (12.0-16.0); Mean Corpuscular HGB Conc 33.2 g/dl (31.0-35.0); Mean Corpuscular Hemoglobin 29.7 pg (27.0-33.0); Mean Corpuscular Volume 89.3 fL (80.0-98.0); Mean Platelet Volume 11.1 fL (9.4-12.3); Platelet Count 190 X10*3/uL (160-400); Red Blood Count 3.74 X10*6/uL (4.20-5.50); Red Cell Distribution Width 14.1 % (11.0-16.0); White Blood Count 4.1 X10*3/uL (4.8-10.8)
[2024-04-19 07:15] VITALS: BP 107/53; PULSE 76; RESP 18; TEMP 36.4; O2SAT 92
[2024-04-19 07:30] LABS: Glucose, Whole Blood 195 mg/dL (60-115)
[2024-04-19] MEDS: Insulin Lispro 100 UNIT/ML 3 ML VIAL SUBCUT ×4 (08:08→21:03)
[2024-04-19] MEDS: metFORMIN HCl 500 MG TABLET PO (08:08)
[2024-04-19] MEDS: risperiDONE 0.5 MG TABLET PO ×2 (08:08→21:03)
--- NOTE | 2024-04-19 10:51 | HO.PM.IMPN ---
Subjective Subjective Date of Service: 04/19/24 Interval History: no complaints cough resolved off O2 Review of Systems Review of Systems: Yes all other systems are reviewed and are negative Physical Exam Vital Signs: Vital Signs: Last Vital Signs Temp 97.5 F 04/19/24 07:15 Pulse 76 04/19/24 07:15 Resp 18 04/19/24 07:15 BP 107/53 L 04/19/24 07:15 Pulse Ox 92 04/19/24 07:15 O2 Del Method Room Air 04/19/24 07:15 O2 Flow Rate 2 04/17/24 07:28 BMI result Body Mass Index 34.9 Gen: in no acute distress HEENT: sclera anicteric, moist mucus membranes Neck: supple Lungs: diminished L base Heart: regular rate and rhythm, no murmurs Abd: soft, non-tender, non-distended Ext: no edema Skin: warm/well-perfused Neuro: alert and oriented to self Psych: impaired insight Objective Data Active Medications Acetaminophen (Acetaminophen 325 Mg Tablet) 975 mg PO Q6H PRN PRN Reason: mild pain, headache or fever Last Admin: 04/17/24 00:42 Dose: 975 mg Documented By: TUMBIANCA Fondaparinux (Fondaparinux Sodium 2.5 Mg/0.5 Ml Syringe) 2.5 mg SUBCUT Q24H [facility] Last Admin: 04/18/24 11:40 Dose: 2.5 mg Documented By: CHERRI Glucose (Glucose Gel 15 Gm Gel..Gram.) 15 gm PO Q15M PRN; Protocol PRN Reason: per Hypoglycemia Standing Ord. Dextrose (D10) 250 mls @ 750 mls/hr IV Q15M PRN; Protocol PRN Reason: per Hypoglycemia Standing Ord. Insulin Human Lispro (Insulin Lispro 100 Unit/Ml 3 Ml Vial) 0 unit SUBCUT QIDACHS [facility]; Protocol Last Admin: 04/19/24 08:08 Dose: 4 unit Documented By: COTEMA Levofloxacin (Levofloxacin 750 Mg Tablet) 750 mg PO Q24H [facility] Stop: 04/21/24 23:59 Last Admin: 04/18/24 13:47 Dose: 750 mg Documented By: CHERRI Levothyroxine Sodium (Levothyroxine Sodium 25 Mcg Tablet) 25 mcg PO DAILY@0600 [facility] Last Admin: 04/19/24 05:25 Dose: 25 mcg Documented By: ARELY Metformin HCl (Metformin Hcl 500 Mg Tablet) 500 mg PO DAILY [facility] Last Admin: 04/19/24 08:08 Dose: 500 mg Documented By: TRINI Risperidone (Risperidone 0.5 Mg Tablet) 0.5 mg PO BID [facility] Last Admin: 04/19/24 08:08 Dose: 0.5 mg Documented By: TRINI Sodium Chloride (0.9 % Sodium Chloride Flush 3 Ml Syringe) 3 ml IVFLUSH QSHIFT [facility] Last Admin: 04/19/24 07:45 Dose: Not Given Documented By: TRINI Non-Admin Reason: No Access Labs 04/19/24 05:47 04/17/24 06:34 Labs: Laboratory Results - last 24 hr 04/18/24 04/18/24 04/18/24 11:09 16:11 20:17 MCV MCH MCHC RDW Plt Count MPV Absolute Nucleated RBC Nucleated RBC % (auto) POC Glucose 270 H 163 H 237 H Procalcitonin 04/19/24 04/19/24 05:47 07:14 MCV 89.3 MCH 29.7 MCHC 33.2 RDW 14.1 Plt Count 190 MPV 11.1 Absolute Nucleated RBC 0.000 Nucleated RBC % (auto) 0.0 POC Glucose 195 H Procalcitonin 0.40 Microbiology Microbiology Results: Microbiology 04/17/24 09:12 Blood Culture - Preliminary Blood - Venous No growth after 24 hours. Assessment and Plan (1) Cognitive impairment: Status: Acute (2) Hypoxia: Status: Acute Plan d11 78yo F with schizoaffective disorder, CAD, s/p CVA, DM2, hx DVT no longer on AC, HTN admitted for inadequate self-care requiring guardianship/placement acute hypoxic resp failure due to PNA - levofloxacin 04/16-04/21, follow BCx, trend PCT, respiratory pathogen PCR panel negative - weaned off O2 CAD hx CVA hx DVT HTN - pt not on any treatment for these issues schizoaffective disorder - risperidone DM2 with hyperglycemia - continue MTF, increase jj-dose lispro sliding scale hypothyroidism - resume LT4, recheck TSH in 4 wk [currently 3.98, goal <2.5] VTE ppx - fondaparinux dispo - LTC In my clinical judgment, the patient requires continued inpatient hospitalization for the following reasons: guardianship/placement Total time managing care of this patient today: 35 minutes. Quality Stroke Does the patient have a stroke diagnosis?: No VTE Prior VTE?: Yes VTE Risk Level:: Medical - moderate - high VTE Device Contraindication: Treatment Not Indicated VTE Drug Contraindication: N/A - Med Ordered
[2024-04-19 11:16] LABS: Glucose, Whole Blood 238 mg/dL (60-115)
[2024-04-19] MEDS: Fondaparinux Sodium 2.5 MG/0.5 ML SYRINGE SUBCUT (11:37)
[2024-04-19] MEDS: levoFLOXacin 750 MG TABLET PO (15:05)
[2024-04-19 15:07] VITALS: BP 113/53; PULSE 85; RESP 18; TEMP 36.5; O2SAT 99
--- NOTE | 2024-04-19 15:19 | MHC.CM.PN ---
PTS ATTY WAS AT BEDSIDE THIS MORNING TO ATTEND PTS CONSERVATORSHIP HEARING AWAITING COURT DECISION PT ALSO RESEEN BY PSYCH
[2024-04-19 16:14] LABS: Glucose, Whole Blood 158 mg/dL (60-115)
[2024-04-19 20:51] LABS: Glucose, Whole Blood 177 mg/dL (60-115)
[2024-04-20] VITALS: BP 108/53; PULSE 80; RESP 16; TEMP 36.8; O2SAT 97
[2024-04-20] MEDS: Levothyroxine Sodium 25 MCG TABLET PO (05:50)
[2024-04-20 07:18] VITALS: BP 114/59; PULSE 81; RESP 20; TEMP 36.3; O2SAT 94
[2024-04-20 07:24] VITALS: BP 114/56; PULSE 57; RESP 16; TEMP 36; O2SAT 95
[2024-04-20 07:26] LABS: Glucose, Whole Blood 175 mg/dL (60-115)
[2024-04-20] MEDS: Insulin Lispro 100 UNIT/ML 3 ML VIAL SUBCUT ×4 (07:56→21:06)
[2024-04-20] MEDS: metFORMIN HCl 500 MG TABLET PO (07:57)
[2024-04-20] MEDS: risperiDONE 0.5 MG TABLET PO (07:57)
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
--- NOTE | 2024-04-20 08:54 | P.PNIM_ITS ---
Subjective Subjective Date of Service: 04/20/24 Interval History: no complaints cough resolved off O2 Review of Systems Review of Systems: Yes all other systems are reviewed and are negative Physical Exam 2 Vital Signs: Vital Signs: Last Vital Signs Temp 96.8 F 04/20/24 07:24 Pulse 57 04/20/24 07:24 Resp 16 04/20/24 07:24 BP 114/56 L 04/20/24 07:24 Pulse Ox 95 04/20/24 07:24 O2 Del Method Room Air 04/20/24 07:24 O2 Flow Rate 2 04/17/24 07:28 BMI result Body Mass Index 34.9 Gen: in no acute distress HEENT: sclera anicteric, moist mucus membranes Neck: supple Lungs: diminished L base Heart: regular rate and rhythm, no murmurs Abd: soft, non-tender, non-distended Ext: no edema Skin: warm/well-perfused Neuro: alert and oriented to self Psych: impaired insight Objective Data Active Medications Acetaminophen (Acetaminophen 325 Mg Tablet) 975 mg PO Q6H PRN PRN Reason: mild pain, headache or fever Last Admin: 04/17/24 00:42 Dose: 975 mg Documented By: TUMASY Fondaparinux (Fondaparinux Sodium 2.5 Mg/0.5 Ml Syringe) 2.5 mg SUBCUT Q24H [facility] Last Admin: 04/19/24 11:37 Dose: 2.5 mg Documented By: COTEMA Glucose (Glucose Gel 15 Gm Gel..Gram.) 15 gm PO Q15M PRN; Protocol PRN Reason: per Hypoglycemia Standing Ord. Dextrose (D10) 250 mls @ 750 mls/hr IV Q15M PRN; Protocol PRN Reason: per Hypoglycemia Standing Ord. Insulin Human Lispro (Insulin Lispro 100 Unit/Ml 3 Ml Vial) 0 unit SUBCUT QIDACHS [facility]; Protocol Last Admin: 04/20/24 07:56 Dose: 4 unit Documented By: DABA Levofloxacin (Levofloxacin 750 Mg Tablet) 750 mg PO Q24H [facility] Stop: 04/21/24 23:59 Last Admin: 04/19/24 15:05 Dose: 750 mg Documented By: COTEMA Levothyroxine Sodium (Levothyroxine Sodium 25 Mcg Tablet) 25 mcg PO DAILY@0600 [facility] Last Admin: 04/20/24 05:50 Dose: 25 mcg Documented By: NOEMIQC Metformin HCl (Metformin Hcl 500 Mg Tablet) 500 mg PO DAILY [facility] Last Admin: 04/20/24 07:57 Dose: 500 mg Documented By: RUTHY Risperidone (Risperidone 0.5 Mg Tablet) 0.5 mg PO BID [facility] Last Admin: 04/20/24 07:57 Dose: 0.5 mg Documented By: RUTHY Sodium Chloride (0.9 % Sodium Chloride Flush 3 Ml Syringe) 3 ml IVFLUSH QSHIFT [facility] Last Admin: 04/20/24 07:58 Dose: Not Given Documented By: RUTHY Non-Admin Reason: No Access Labs 04/19/24 05:47 04/17/24 06:34 Labs: Laboratory Results - last 24 hr 04/19/24 04/19/24 04/19/24 11:12 16:04 20:08 POC Glucose 238 H 158 H 177 H 04/20/24 07:17 POC Glucose 175 H Microbiology Microbiology Results: Microbiology 04/17/24 09:12 Blood Culture - Preliminary Blood - Venous No growth after 48 hours. Assessment and Plan (1) Cognitive impairment: Status: Acute (2) Hypoxia: Status: Acute Plan d11 78yo F with schizoaffective disorder, CAD, s/p CVA, DM2, hx DVT no longer on AC, HTN admitted for inadequate self-care requiring guardianship/placement acute hypoxic resp failure due to PNA - levofloxacin 04/16-04/21, follow BCx, trend PCT, respiratory pathogen PCR panel negative - weaned off O2 CAD hx CVA hx DVT HTN - pt not on any treatment for these issues schizoaffective disorder - risperidone DM2 with hyperglycemia - continue MTF, increase jj-dose lispro sliding scale hypothyroidism - resume LT4, recheck TSH in 4 wk [currently 3.98, goal <2.5] VTE ppx - fondaparinux dispo - LTC In my clinical judgment, the patient requires continued inpatient hospitalization for the following reasons: guardianship/placement Total time managing care of this patient today: 35 minutes. Quality Stroke Does the patient have a stroke diagnosis?: No VTE Prior VTE?: Yes VTE Risk Level:: Medical - moderate - high VTE Device Contraindication: Treatment Not Indicated VTE Drug Contraindication: N/A - Med Ordered
[2024-04-20] MEDS: Fondaparinux Sodium 2.5 MG/0.5 ML SYRINGE SUBCUT (10:12)
[2024-04-20] MEDS: risperiDONE 1 MG TABLET PO ×2 (10:14→21:06)
[2024-04-20 11:35] LABS: Glucose, Whole Blood 282 mg/dL (60-115)
[2024-04-20] MEDS: levoFLOXacin 750 MG TABLET PO (14:31)
[2024-04-20 15:27] VITALS: BP 104/52; PULSE 82; RESP 16; TEMP 36.3; O2SAT 96
[2024-04-20 16:19] LABS: Glucose, Whole Blood 102 mg/dL (60-115)
[2024-04-20 20:34] VITALS: BP 111/56; PULSE 86; RESP 18; TEMP 36.3; O2SAT 95
[2024-04-20 20:43] LABS: Glucose, Whole Blood 249 mg/dL (60-115)
[2024-04-20 23:38] VITALS: BP 118/58; PULSE 79; RESP 18; TEMP 36.3; O2SAT 97
[2024-04-21] MEDS: Levothyroxine Sodium 25 MCG TABLET PO (05:39)
[2024-04-21 07:27] VITALS: BP 132/58; PULSE 80; RESP 16; TEMP 36.4; O2SAT 95
[2024-04-21 07:44] LABS: Glucose, Whole Blood 186 mg/dL (60-115)
[2024-04-21] MEDS: Insulin Lispro 100 UNIT/ML 3 ML VIAL SUBCUT ×4 (07:53→20:15)
[2024-04-21] MEDS: risperiDONE 1 MG TABLET PO ×2 (07:53→20:15)
[2024-04-21] MEDS: metFORMIN HCl 500 MG TABLET PO (07:53)
--- NOTE | 2024-04-21 09:12 | HO.PM.IMPN ---
Subjective Subjective Date of Service: 04/21/24 Interval History: no complaints cough resolved off O2 Review of Systems Review of Systems: Yes all other systems are reviewed and are negative Physical Exam Vital Signs: Vital Signs: Last Vital Signs Temp 97.6 F 04/21/24 07:27 Pulse 80 04/21/24 07:27 Resp 16 04/21/24 07:27 BP 132/58 L 04/21/24 07:27 Pulse Ox 95 04/21/24 07:27 O2 Del Method Room Air 04/21/24 07:27 O2 Flow Rate 2 04/17/24 07:28 BMI result Body Mass Index 34.9 Gen: in no acute distress HEENT: sclera anicteric, moist mucus membranes Neck: supple Lungs: diminished L base Heart: regular rate and rhythm, no murmurs Abd: soft, non-tender, non-distended Ext: no edema Skin: warm/well-perfused Neuro: alert and oriented to self Psych: impaired insight Objective Data Active Medications Acetaminophen (Acetaminophen 325 Mg Tablet) 975 mg PO Q6H PRN PRN Reason: mild pain, headache or fever Last Admin: 04/17/24 00:42 Dose: 975 mg Documented By: JD Fondaparinux (Fondaparinux Sodium 2.5 Mg/0.5 Ml Syringe) 2.5 mg SUBCUT Q24H [facility] Last Admin: 04/20/24 10:12 Dose: 2.5 mg Documented By: RUTHY Glucose (Glucose Gel 15 Gm Gel..Gram.) 15 gm PO Q15M PRN; Protocol PRN Reason: per Hypoglycemia Standing Ord. Dextrose (D10) 250 mls @ 750 mls/hr IV Q15M PRN; Protocol PRN Reason: per Hypoglycemia Standing Ord. Insulin Human Lispro (Insulin Lispro 100 Unit/Ml 3 Ml Vial) 0 unit SUBCUT QIDACHS [facility]; Protocol Last Admin: 04/21/24 07:53 Dose: 4 unit Documented By: RUTHY Levofloxacin (Levofloxacin 750 Mg Tablet) 750 mg PO Q24H [facility] Stop: 04/21/24 23:59 Last Admin: 04/20/24 14:31 Dose: 750 mg Documented By: RUTHY Levothyroxine Sodium (Levothyroxine Sodium 25 Mcg Tablet) 25 mcg PO DAILY@0600 [facility] Last Admin: 04/21/24 05:39 Dose: 25 mcg Documented By: NOEMIQC Metformin HCl (Metformin Hcl 500 Mg Tablet) 500 mg PO DAILY [facility] Last Admin: 04/21/24 07:53 Dose: 500 mg Documented By: RUTHY Risperidone (Risperidone 1 Mg Tablet) 1 mg PO BID [facility] Last Admin: 04/21/24 07:53 Dose: 1 mg Documented By: RUTHY Sodium Chloride (0.9 % Sodium Chloride Flush 3 Ml Syringe) 3 ml IVFLUSH QSHIFT [facility] Last Admin: 04/21/24 06:28 Dose: Not Given Documented By: RUTHY Non-Admin Reason: No Access Labs 04/19/24 05:47 04/17/24 06:34 Labs: Laboratory Results - last 24 hr 04/20/24 04/20/24 04/20/24 11:30 16:11 20:36 POC Glucose 282 H 102 249 H 04/21/24 07:28 POC Glucose 186 H Assessment and Plan (1) Cognitive impairment: Status: Acute (2) Hypoxia: Status: Acute Plan 78yo F with schizoaffective disorder, CAD, s/p CVA, DM2, hx DVT no longer on AC, HTN admitted for inadequate self-care requiring guardianship/placement acute hypoxic resp failure due to PNA - levofloxacin 04/16-04/21, follow BCx, trend PCT, respiratory pathogen PCR panel negative - weaned off O2 CAD hx CVA hx DVT HTN - pt not on any treatment for these issues schizoaffective disorder - risperidone DM2 with hyperglycemia - continue MTF, increase jj-dose lispro sliding scale hypothyroidism - resume LT4, recheck TSH in 4 wk [currently 3.98, goal <2.5] VTE ppx - fondaparinux dispo - LTC In my clinical judgment, the patient requires continued inpatient hospitalization for the following reasons: guardianship/placement Total time managing care of this patient today: 35 minutes. Quality Stroke Does the patient have a stroke diagnosis?: No VTE Prior VTE?: Yes VTE Risk Level:: Medical - moderate - high VTE Device Contraindication: Treatment Not Indicated VTE Drug Contraindication: N/A - Med Ordered
[2024-04-21 11:17] LABS: Glucose, Whole Blood 254 mg/dL (60-115)
--- NOTE | 2024-04-21 11:24 | MHC.CM.PN ---
Patient continues to await conservatorship. CM will continue to follow.
[2024-04-21] MEDS: Fondaparinux Sodium 2.5 MG/0.5 ML SYRINGE SUBCUT (11:39)
[2024-04-21] MEDS: levoFLOXacin 750 MG TABLET PO (14:25)
[2024-04-21 16:00] VITALS: BP 93/50; PULSE 76; RESP 16; TEMP 36.1; O2SAT 100
[2024-04-21 16:05] LABS: Glucose, Whole Blood 137 mg/dL (60-115)
[2024-04-21 23:39] VITALS: BP 100/51; PULSE 70; RESP 16; TEMP 36.1; O2SAT 97
[2024-04-22] MEDS: Levothyroxine Sodium 25 MCG TABLET PO (05:47)
[2024-04-22 06:30] LABS: Glucose, Whole Blood 232 mg/dL (60-115)
[2024-04-22 08:00] VITALS: BP 109/55; PULSE 73; RESP 20; TEMP 36.1; O2SAT 96
[2024-04-22 08:00] LABS: Glucose, Whole Blood 155 mg/dL (60-115)
[2024-04-22] MEDS: Insulin Lispro 100 UNIT/ML 3 ML VIAL SUBCUT ×2 (08:17→11:50)
[2024-04-22] MEDS: risperiDONE 1 MG TABLET PO (08:17)
[2024-04-22] MEDS: metFORMIN HCl 500 MG TABLET PO (08:18)
--- NOTE | 2024-04-22 08:58 | MHC.CM.PN ---
This script writer placed call to pt's daughter/HCP to let her know we would be d/c'ing patient today. She understands plan. Communicated to CM.
[2024-04-22 11:19] LABS: Glucose, Whole Blood 247 mg/dL (60-115)
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
[2024-04-22] MEDS: Fondaparinux Sodium 2.5 MG/0.5 ML SYRINGE SUBCUT (11:51)
--- NOTE | 2024-04-22 14:36 | MHC.CM.PN ---
This gag writer spoke w/ NELLI Monk, hospital Balancer (Abdi Saul). As noted by Aleshia patient has made some improvements realted to her mental health after taking an antipsychotic. As this time patient will be able to decide to leave the hospital and coordinate care moving forward. The court hearing regarding pt's HCP affirmation will be canceled. Call placed to pt's daughter HCP & notified her of the plan- she verbalized understanding.
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
== END 2024-04-22 14:07 | disposition home or self-care (01) ==
LOC: HO.EDOVER 16:40 → HO.S3 04-10 00:01
PROVIDERS: Family Medicine; Admitting Provider Internal Medicine; Visit Provider Student in an Organized Health Care Education/Training Program
DX: G31.84 Mild cognitive impairment of uncertain or unknown etiology (principal); R09.02 Hypoxemia; E11.65 Type 2 diabetes mellitus with hyperglycemia; J18.9 Pneumonia, unspecified organism; I25.10 Atherosclerotic heart disease of native coronary artery without angina pectoris; F31.0 Bipolar disorder, current episode hypomanic; F25.9 Schizoaffective disorder, unspecified; I10 Essential (primary) hypertension; I82.409 Acute embolism and thrombosis of unspecified deep veins of unspecified lower extremity; E03.9 Hypothyroidism, unspecified; Z79.899 Other long term (current) drug therapy; Z91.148 Patient's other noncompliance with medication regimen for other reason
CPT/HCPCS: 36415; 71045; 80048; 80053; 80061; 80307; 81001; 82565; 82607; 82746; 82947; 83036; 83880; 84145; 84443; 85025; 85027; 87040; 87633; 87635; 96372; 97162; 99221; 99285; J1652; S9485

== ENCOUNTER → 2024-04-09 15:00 | Outpatient (BNV) | payer MEDICARE, SELFPAY | PROVIDERS: Admitting Provider Internal Medicine; Visit Provider Social Worker | DX: F25.9 Schizoaffective disorder, unspecified (principal); R41.89 Other symptoms and signs involving cognitive functions and awareness | CPT/HCPCS: 99232 ==

== ENCOUNTER → 2024-04-09 | Outpatient (BNV) | payer MEDICARE, SELFPAY | PROVIDERS: Admitting Provider Internal Medicine; Visit Provider Internal Medicine | DX: J96.01 Acute respiratory failure with hypoxia (principal); E11.65 Type 2 diabetes mellitus with hyperglycemia; F25.9 Schizoaffective disorder, unspecified; J18.9 Pneumonia, unspecified organism | CPT/HCPCS: 99222; 99231; 99232; 99239 ==